=== PATIENT | female | born 1990 | race Caucasian/White ===

== ENCOUNTER 2020-07-09 17:46 | Emergency (ER) | payer OTHER, SELFPAY ==
[2020-07-09 19:12] VITALS: BP 125/78; PULSE 101; RESP 16; TEMP 37.1; O2SAT 97; BMI 36.2
--- NOTE | 2020-07-09 19:50 | XR_ITS ---
EXAMINATION: XR CHEST CLINICAL INFORMATION: Fever with cold like symptoms. COMPARISON: Chest x-ray 05/30/2018 TECHNIQUE: Frontal view of the chest was obtained. FINDINGS: Cardiac silhouette is normal in size. Lungs are adequately aerated. Subtle patchy opacity of the right lower lung. No gross lobar consolidation. No pleural effusion or pneumothorax. XR/XR chest 1V IMPRESSION: Subtle patchy opacity of the right lower lung is nonspecific but would be consistent with a viral infiltrate. Follow-up imaging recommended status post treatment to ensure resolution.
--- NOTE | 2020-07-09 20:11 | PC.NURSE ---
XRay at bedside, pt stated to XRay that her period was 3 days late. Pt provided with a urine cup, states she is unable to provide sample as she just voided. Provider aware.
[2020-07-09 20:13] LABS: Influenza A PCR NEGATIVE (Negative); Influenza B PCR NEGATIVE (Negative); Resp Syncy Virus RNA Qual PCR NEGATIVE (Negative)
[2020-07-09 20:17] LABS: SARS COV2 PCR INHOUSE POSITIVE (Negative)
--- NOTE | 2020-07-09 20:19 | ED.FEVER ---
HPI - Fever General Chief Complaint: Headache Stated Complaint: fever Time Seen by Provider: 07/09/20 19:50 Source: patient Mode of arrival: ambulatory Limitations: no limitations History of Present Illness HPI Narrative: 30-year-old female to the ED with complaints of subjective fevers, chills, body aches, fatigue and intermittent headaches for the past few days worse today. Reports positive exposure to COVID-19 by a close friend. Denies any other exposures. Denies recent travel. Denied any measured fevers, changes in vision, dizziness, lightheadedness, nausea/vomiting, neck pain or stiffness, chest pain or shortness of breath, productive cough, dry cough, wheezing, any symptoms or any other symptoms complaints or concerns at this time. Related Data Previous Rx's Medication Instructions Recorded acetaminophen [Tylenol Extra 1,000 mg PO QID PRN #14 tab 07/09/20 Strength] azithromycin See Rx Instructions .ROUTE 07/09/20 .COMPLEX #6 tab cyclobenzaprine 10 mg PO TID PRN #10 tab 07/09/20 ibuprofen 800 mg PO Q8H PRN #14 tab 07/09/20 Allergies Allergy/AdvReac Type Severity Reaction Status Date / Time No Known Allergies Allergy Unverified 03/07/20 17:36 Review of Systems Review of Systems: Constitutional : + Fever, + Chills, + fatigue, + Malaise ENT/Mouth : No sore throat, No runny nose Eyes: No Discharge Cardiovascular : No Chest Pain, No SOB Respiratory : No Cough, No Sputum, No Wheezing, No Smoke Exposure, No Dyspnea Gastrointestinal : No Nausea, No Vomiting, No Diarrhea Genitourinary : No irregular bleeding, No Dysuria, No Urinary Frequency, No Hematuria, No Urinary Incontinence, No Urgency, No Flank Pain, Musculoskeletal : + Myalgia Skin : No rash Neuro : + Headache Yes all other systems are reviewed and are negative [facility] Past Medical History Attestation statement: The following information was validated with the patient. Social History Social History Advance Directives: No Advance Directives Information Provided: Yes Physical Exam Vital Signs: Vital Signs: Last Vital Signs Temp 98.7 F 07/09/20 19:12 Pulse 101 H 07/09/20 19:12 Resp 16 01/19/21 19:12 BP 125/78 07/09/20 19:12 Pulse Ox 97 07/09/20 19:12 Body Mass Index 36.2 vital signs have been reviewed as normal and appeared to be correct. Blood pressure normal. Heart rate normal. Respiration rate normal. Temperature normal. Oxygen saturation normal. Appearance: Alert. Oriented X3. No acute distress. Head: Normal external exam. Normocephalic. Atraumatic. Eyes: PERRLA. EOMI. Conjunctiva and sclera normal. Eyelids normal. ENT: EAC normal. TM's Normal. Pharynx normal. Uvula midline. Moist mucous membranes. No trismus noted. No drooling noted. No muffled voice noted. Neck: Normal inspection. Neck supple. FROM. No adenopathy. No meningeal signs. CVS: Normal heart rate and rhythm. Heart sound normal. No murmurs noted. Pulses normal throughout. Respiratory: No respiratory distress. Painless inspiration. Breath sounds normal. No wheezes/rales/rhonchi noted. Chest nontender. No accessory muscle usage noted or decreased air movement noted. Back: Full range of motion noted. Skin: Skin warm and dry. Normal skin color. Normal skin turgor. No rashes/lesions/lacerations noted. Extremities: Extremities exhibit normal range of motion. Extremities nontender. Neuro: Oriented X 3. No motor deficit. No sensory deficit. Reflexes normal. Course Course Course Narrative: 30-year-old female presenting to the ED with URI like symptoms possibly COVID. - plan is to obtain a COVID/RSV/flu swab and a chest x-ray then re-evaluate. Reevaluation(s) Reevaluation #1: - when they went to take the patient's chest x-ray she reported that she is unsure if she is therefore requested a urine test. - therefore urine test ordered at this time. - patient is COVID positive. RSV/flu negative. - will DC home with antibiotics and symptomatic treatment along with instructions return if any new or worsening symptoms if is negative along with instructions to follow up with primary care provider. Patient understands agrees the plan. Time: 20:23 [facility] [place] - Fever Medical Records Attestation: I reviewed the patient's medical records. Lab Data Attestation: I reviewed the patient's lab results. Labs: Lab Results 07/09/20 07/09/20 Range/Units 19:26 20:59 Urine Color YELLOW Urine Appearance CLEAR Urine pH 5.5 (5.0-8.0) Ur Specific [place] >= 1.030 H (1.005-1.025) Urine Protein NEG (NEG-TRACE) MG/DL Urine Glucose (UA) 500 H (NEG) MG/DL Urine Ketones NEG (NEG) MG/DL Urine Blood NEG (NEG) Urine Nitrite NEG (NEG) Ur Leukocyte Esterase NEG (NEG) Coronavirus (PCR) POSITIVE A (Negative) Influenza Type A (PCR) NEGATIVE (Negative) Influenza Type B (PCR) NEGATIVE (Negative) RSV RNA Qual (PCR) NEGATIVE (Negative) Discharge Plan Discharge Clinical Impression: COVID-19 Patient Disposition: Home, Self-Care Instructions: COVID-19 (Coronavirus Disease 2019) (ED) Additional Instructions: You are positive for COVID-19. At this time you will be okay for discharge. Please plan for self quarantine for up to 14 days. Do not expose yourself to others. You may not go to work. If testing does come back negative you may return to activities as long as you are no longer having any symptoms for at least 3 days. Please continue to follow cold instructions and wash your hands frequently. You may take Tylenol as directed on the bottle for pain or fever. Patient seen in the emergency department on 07/09/2020 and should be excused from work until negative test results AND until 72 hours without any symptoms AND at least 10 days have passed since symptoms first appeared or since last exposure to COVID-19 positive patient CDC Guidelines for home isolation: - Stay away from others - WEAR A MASK if you are sick AND STAY HOME - Cover your mouth and nose with a tissue when you cough or sneeze. Dispose of tissues in a lined trash can and wash your hands immediately with soap and water for at least 20 seconds. If soap and water are not available, clean hands with alcohol-based hand cap and stud machine operator that contains at least 60% alcohol. - Clean your hands often with soap and water for at least 20 seconds - Avoid touching your eyes, nose and mouth with unwashed hands - Do not share dishes, drinking glasses, cups, eating utensils, towels, or bedding with other people in your home. After using these items, wash them thoroughly with soap and water or put in the insurance policy clerk. - Clean high-touch surfaces in your isolation area ( sick room and bathroom) every day; let a caregiver clean and disinfect high-touch surfaces in other areas of the home. Clean the area or item with soap and water or another detergent if it is dirty. Then, use a household disinfectant. - Limit contact with pets and animals: If you must care for a pet, wash your hands before and after interacting with them). Prescriptions: New acetaminophen [Tylenol Extra Strength] 500 mg tablet 1,000 mg PO QID PRN (Reason: fever or pain) Qty: 14 RF: 0 cyclobenzaprine 10 mg tablet 10 mg PO TID PRN (Reason: muscle spasm) Qty: 10 RF: 0 azithromycin 250 mg tablet See Rx Instructions .ROUTE .COMPLEX Qty: 6 RF: 0 ibuprofen 800 mg tablet 800 mg PO Q8H PRN (Reason: pain) Qty: 14 RF: 0 Referrals: Physician,Unknown [Primary Care Provider] - 2 days (your pcp) Stand Alone Forms: Work/School Release Print Language: Icelandic
--- NOTE | 2020-07-09 20:59 | PC.NURSE ---
UPreg obtained and sent. Awaiting results and XRay.
[2020-07-09 21:07] LABS: Glucose Urine UA 500 MG/DL (NEG); Leukocyte Esterase Urine NEG (NEG); Nitrite Urine NEG (NEG); PH 5.5 (5.0-8.0); Specific Gravity - Urine >= 1.030 (1.005-1.025); Urine Blood NEG (NEG); Urine Ketones NEG (NEG); Urine Protein NEG (NEG-TRACE)
[2020-07-09 21:08] LABS: Appearance Urine CLEAR; Color Urine YELLOW
--- NOTE | 2020-07-09 21:41 | PC.NURSE ---
Lab called due to pending UPreg. Per lab, so many add ons, we are getting confused. Lab to call back.
[2020-07-09 21:45] LABS: UPreg QC Valid YES; Urine Pregnancy NEGATIVE (NEGATIVE)
[2020-07-09 22:41] VITALS: BP 134/78; PULSE 78; RESP 16; TEMP 37.4; O2SAT 98
== END 2020-07-09 22:42 | disposition home or self-care (01) ==
PROVIDERS: Physician Assistant Medical; Emergency Provider Emergency Medicine Emergency Medical Services
DX: U07.1 COVID-19 (principal)
CPT/HCPCS: 0241U; 36415; 71045; 81003; 81025; 99283; 99284

== ENCOUNTER 2020-07-14 14:38 | Inpatient (IN) | payer OTHER, SELFPAY ==
[2020-07-14] VITALS (7 sets, daily range): BP systolic 111–141; BP diastolic 60–76; PULSE 82–112; RESP 15–28; TEMP 36.9–38.3; O2SAT 91–100; BMI 36.2
--- NOTE | 2020-07-14 14:54 | ECG_ITS ---
Test Reason : CHEST PAIN Blood Pressure : / mmHG Vent. Rate : 100 BPM Atrial Rate : 100 BPM P-R Int : 164 ms QRS Dur : 090 ms QT Int : 350 ms P-R-T Axes : 032 016 -13 degrees QTc Int : 451 ms Poor data quality Normal sinus rhythm Nonspecific T wave changes When compared with ECG of 21-MAY-2012 15:55, No significant changes seen Referred By: Donna Vences Electronically Signed By:Jeff Renee
--- NOTE | 2020-07-14 14:54 | XR_ITS ---
EXAMINATION: XR CHEST CLINICAL INFORMATION: sob + covid COMPARISON: Chest radiograph 07/09/2020 TECHNIQUE: Frontal view of the chest was obtained. FINDINGS: Normal cardiomediastinal silhouette. Patchy opacities in the bilateral lower lobes, increased since the prior study. No pleural effusion or pneumothorax. No acute osseous abnormality. XR/XR chest 1V IMPRESSION: Multifocal patchy infiltrate in the bilateral lower lobes, which can be seen in the setting of COVID 19 pneumonia.
[2020-07-14] MEDS: guaiFEN/Codeine SF 200/20/10ML 10 ML LIQUID PO (15:29)
[2020-07-14] MEDS: Acetaminophen 325 MG TABLET 975 MG PO (15:29)
--- NOTE | 2020-07-14 15:58 | ED_ITS ---
HPI - General Adult General Chief complaint: General Medical Stated complaint: SOB, COUGH, FEVER Time Seen by Provider: 07/14/20 14:52 Source: patient Mode of arrival: ambulatory Limitations: no limitations History of Present Illness HPI narrative: 30yoF who was recently dx c COVID-19 on 07/09/2020 presenting to the ED c worsening symptoms which include fevers, chills, body aches, intermittent headaches, nausea/vomiting, dry cough with shortness of breath, shortness of breath on exertion, generalized abdominal pain and diarrhea. Patient on arrival she was in the low 90s on room air. She was given normal saline and Zofran prior to arrival by EMS. Patient was placed on nasal cannula oxygen at 3L while here in the emergency department. She reports that she was prescribed and completed 4 days and was supposed to take her last dose today. Denies any other symptoms complaints or concerns at this time. Related Data Previous Rx's Medication Instructions Recorded acetaminophen [Tylenol Extra 1,000 mg PO QID PRN #14 tab 07/09/20 Strength] azithromycin See Rx Instructions .ROUTE 07/09/20 .COMPLEX #6 tab cyclobenzaprine 10 mg PO TID PRN #10 tab 07/09/20 ibuprofen 800 mg PO Q8H PRN #14 tab 07/09/20 Allergies Allergy/AdvReac Type Severity Reaction Status Date / Time No Known Allergies Allergy Unverified 03/07/20 17:36 Review of Systems Review of Systems: Constitutional : + Fever, + Chills, + fatigue, + Malaise ENT/Mouth : No sore throat, No runny nose Eyes: No Discharge Cardiovascular : No Chest Pain, + SOB Respiratory : + Cough, No Sputum, No Wheezing, No Dyspnea Gastrointestinal : + Nausea, + Vomiting, + abd pain, + Diarrhea Genitourinary : No irregular bleeding, No Dysuria, No Urinary Frequency, No Hematuria, No Urinary Incontinence, No Urgency, No Flank Pain, Musculoskeletal : + Myalgia Skin : No rash Neuro : + Headache Yes all other systems are reviewed and are negative [facility] Past Medical History Attestation statement: The following information was validated with the patient. Medical History No known health problems Social History Social History Alcohol intake: current Alcohol intake frequency: holidays/special occasions only Alcohol type: wine Smoking Status: Never smoker Use of substances other than those prescribed or required for medical reasons: No Advance Directives: No Advance Directives Information Provided: No Physical Exam Vital Signs: Vital Signs: Last Vital Signs Temp 100.9 F H 07/14/20 14:47 Pulse 103 H 07/14/20 16:53 Resp 20 07/14/20 16:53 BP 141/74 H 07/14/20 14:47 Pulse Ox 95 07/14/20 16:53 Body Mass Index 36.2 vital signs have been reviewed as normal and appeared to be correct. Blood pressure hypertensive. Heart rate tachycardic. Respiration rate tachypneic. Temperature febrile. Oxygen saturation hypoxic. Appearance: Alert. Oriented X3 . Moderate respiratory distress. Head: Normal external exam. Normocephalic. Atraumatic. Eyes: PERRLA. EOMI. Conjunctiva and sclera normal. Eyelids normal. ENT: EAC normal. TM's Normal. Pharynx normal. Uvula midline. Moist mucous membranes. No trismus noted. No drooling noted. No muffled voice noted. Neck: Normal inspection. Neck supple. FROM. No adenopathy. Thyroid Normal. Trachea midline. No meningeal signs. No neck mass noted. CVS: Normal heart rate and rhythm. Heart sound normal. No murmurs noted. Pulses normal throughout. Respiratory: Moderate respiratory distress with accessory muscle usage and requiring nasal cannula oxygen with decreased air movement. Otherwise no wheez es/rales/rhonchi noted. Chest is nontender. Patient is speaking in full sentences. Abdomen: Soft and nontender. Bowel sounds normal in all 4 quadrants. No distention noted. No organomegaly noted. No visible injury noted. Back: No CVA tenderness. Full range of motion noted. Skin: Skin warm and dry. Normal skin color. Normal skin turgor. No rashes/lesions/lacerations noted. Extremities: No lower extremity edema. Extremities exhibit normal range of motion. Extremities nontender. Neuro: Oriented X 3. No motor deficit. No sensory deficit. Reflexes normal. Course Course Course Narrative: 15pm - 30yoF who was recently dx c COVID-19 on 07/09/2020 presenting to the ED c worsening symptoms which include fevers, chills, body aches, intermittent headaches, nausea/vomiting, dry cough with shortness of breath, shortness of breath on exertion, generalized abdominal pain and diarrhea. - On exam patient is hypoxic, tachypneic and tachycardic placed on 3 L of nasal cannula oxygen in moderate respiratory distress with accessory muscle usage in decreased breath sounds. No wheezes/rales/rhonchi noted. Otherwise no other acute distress. Speaking in full sentences. - Plan: Labs, KEG, Blood cultures, lactic acid, CXR. Provide 10 mg of Decadron, 4 puffs of albuterol inhaler, 975 mg of Tylenol, 10 mg of Robitussin with codeine and 1 L of IV fluids and re-evaluate. Reevaluation(s) Reevaluation #1: - D-dimer 263. potassium 3.2. Ferritin 723. AST/ALT 43/73. LDH 342. Otherwise all other labs are within normal limits. Serum quant negative for . Patient positive for COVID since 07/09/20. Lactic acid 1.1. - CXR revealed multifocal patchy infiltrate in the bilateral lower lobes which could be seen in the setting of COVID-19 pneumonia. - therefore this is viral pneumonia/sepsis. - therefore due to elevated D-dimer patient will be having a CT scan of chest to evaluate for possible PE. Will replace the patient's potassium with 10 mEq of IV potassium. - plan is to admit patient for COVID with hypoxia. Sign-out at this time to SHANIQUA James pending CTA for PE. Time: 17:46 Medical Decision Making Medical Records Medical records reviewed: Yes I reviewed the patient's medical records. Lab Data Lab results reviewed: Yes I reviewed the patient's lab results. Result diagrams: 07/14/20 16:01 07/14/20 16:02 Labs: Lab Results 07/14/20 07/14/20 07/14/20 Range/Units 16:01 16:01 16:02 WBC 5.5 (4.8-10.8) X10*3/uL RBC 4.27 (4.20-5.50) X10*6/uL Hgb 12.4 (12.0-16.0) g/dl Hct 36.4 L (37-47) % MCV 85.2 (80-98) fL MCH 29.0 (27.0-33.0) pg MCHC 34.1 (31.0-35.0) g/dl RDW 12.5 (11.0-16.0) % Plt Count 161 (160-400) X10*3/uL MPV 10.8 (9.4-12.3) fL Immature Gran % (Auto) 0.4 (0.0-0.4) % Neut % (Auto) 85.5 H (45-73) % Lymph % (Auto) 10.1 L (20-40) % [place] % (Auto) 4.0 (2-11) % Eos % (Auto) 0.0 (0-4) % Baso % (Auto) 0.0 (0-2) % Lymph # (Auto) 0.6 L (1.2-4.9) X10*3/uL [place] # (Auto) 0.2 (0.1-1.2) X10*3/uL Eos # (Auto) 0.0 (0.0-0.4) X10*3/uL Baso # (Auto) 0.0 (0.0-0.2) X10*3/uL Abs Immat Gran (auto) 0.02 (0.00-0.03) X10*3/uL Absolute Neuts (auto) 4.7 (2.0-8.3) X10*3/uL Absolute Nucleated RBC 0.000 (0.0-0.012) X10*3/uL Nucleated RBC % (auto) 0.0 (0.0-0.2) /100WBC Smear Tech's Comments VERIFIED Hold Purple Top PT 14.9 H (10.8-13.0) SEC INR 1.3 H (0.9-1.1) D-Dimer 263 NG/ML Sodium 138 (135-145) mmol/L Potassium 3.2 L (3.3-5.1) mmol/l Chloride 102 (96-108) mmol/L Carbon Dioxide 26 (22-29) mmol/L Anion Gap 13 (12-20) BUN 7 L (9-16) mg/dL Creatinine 0.70 (0.5-1.4) mg/dL Estim Creat Clear Calc 138.0 Estimated GFR > 60 Random Glucose 198 H (60-115) mg/dL Lactic Acid (0.5-2.0) mmol/L Calcium 7.9 L (8.4-10.2) mg/dL Magnesium 1.8 (1.6-2.6) mg/dL Ferritin 723 H (10-122) ng/mL Total Bilirubin 0.4 (0.0-1.0) mg/dL Direct Bilirubin 0.2 (0.0-0.5) mg/dL AST 43 H (5-31) U/L ALT 71 H (0-31) U/L Alkaline Phosphatase 45 (39-117) U/L Lactate Dehydrogenase 342 H (122-220) U/L Total Protein 6.8 (6.5-8.0) g/dL Albumin 3.9 (3.5-5.0) g/dL Procalcitonin ng/mL Beta HCG, Quant mIU/mL 07/14/20 07/14/20 07/14/20 Range/Units 16:02 16:02 16:02 WBC (4.8-10.8) X10*3/uL RBC (4.20-5.50) X10*6/uL Hgb (12.0-16.0) g/dl Hct (37-47) % MCV (80-98) fL MCH (27.0-33.0) pg MCHC (31.0-35.0) g/dl RDW (11.0-16.0) % Plt Count (160-400) X10*3/uL MPV (9.4-12.3) fL Immature Gran % (Auto) (0.0-0.4) % Neut % (Auto) (45-73) % Lymph % (Auto) (20-40) % [place] % (Auto) (2-11) % Eos % (Auto) (0-4) % Baso % (Auto) (0-2) % Lymph # (Auto) (1.2-4.9) X10*3/uL [place] # (Auto) (0.1-1.2) X10*3/uL Eos # (Auto) (0.0-0.4) X10*3/uL Baso # (Auto) (0.0-0.2) X10*3/uL Abs Immat Gran (auto) (0.00-0.03) X10*3/uL Absolute Neuts (auto) (2.0-8.3) X10*3/uL Absolute Nucleated RBC (0.0-0.012) X10*3/uL Nucleated RBC % (auto) (0.0-0.2) /100WBC Smear Tech's Comments Hold Purple Top PT (10.8-13.0) SEC INR (0.9-1.1) D-Dimer NG/ML Sodium (135-145) mmol/L Potassium (3.3-5.1) mmol/l Chloride (96-108) mmol/L Carbon Dioxide (22-29) mmol/L Anion Gap (12-20) BUN (9-16) mg/dL Creatinine (0.5-1.4) mg/dL Estim Creat Clear Calc Estimated GFR Random Glucose (60-115) mg/dL Lactic Acid 1.1 (0.5-2.0) mmol/L Calcium (8.4-10.2) mg/dL Magnesium (1.6-2.6) mg/dL Ferritin (10-122) ng/mL Total Bilirubin (0.0-1.0) mg/dL Direct Bilirubin (0.0-0.5) mg/dL AST (5-31) U/L ALT (0-31) U/L Alkaline Phosphatase (39-117) U/L Lactate Dehydrogenase (122-220) U/L Total Protein (6.5-8.0) g/dL Albumin (3.5-5.0) g/dL Procalcitonin 0.10 ng/mL Beta HCG, Quant < 2 mIU/mL 07/14/20 Range/Units 16:03 WBC (4.8-10.8) X10*3/uL RBC (4.20-5.50) X10*6/uL Hgb (12.0-16.0) g/dl Hct (37-47) % MCV (80-98) fL MCH (27.0-33.0) pg MCHC (31.0-35.0) g/dl RDW (11.0-16.0) % Plt Count (160-400) X10*3/uL MPV (9.4-12.3) fL Immature Gran % (Auto) (0.0-0.4) % Neut % (Auto) (45-73) % Lymph % (Auto) (20-40) % [place] % (Auto) (2-11) % Eos % (Auto) (0-4) % Baso % (Auto) (0-2) % Lymph # (Auto) (1.2-4.9) X10*3/uL [place] # (Auto) (0.1-1.2) X10*3/uL Eos # (Auto) (0.0-0.4) X10*3/uL Baso # (Auto) (0.0-0.2) X10*3/uL Abs Immat Gran (auto) (0.00-0.03) X10*3/uL Absolute Neuts (auto) (2.0-8.3) X10*3/uL Absolute Nucleated RBC (0.0-0.012) X10*3/uL Nucleated RBC % (auto) (0.0-0.2) /100WBC Smear Tech's Comments Hold Purple Top SEE NOTE PT (10.8-13.0) SEC INR (0.9-1.1) D-Dimer NG/ML Sodium (135-145) mmol/L Potassium (3.3-5.1) mmol/l Chloride (96-108) mmol/L Carbon Dioxide (22-29) mmol/L Anion Gap (12-20) BUN (9-16) mg/dL Creatinine (0.5-1.4) mg/dL Estim Creat Clear Calc Estimated GFR Random Glucose (60-115) mg/dL Lactic Acid (0.5-2.0) mmol/L Calcium (8.4-10.2) mg/dL Magnesium (1.6-2.6) mg/dL Ferritin (10-122) ng/mL Total Bilirubin (0.0-1.0) mg/dL Direct Bilirubin (0.0-0.5) mg/dL AST (5-31) U/L ALT (0-31) U/L Alkaline Phosphatase (39-117) U/L Lactate Dehydrogenase (122-220) U/L Total Protein (6.5-8.0) g/dL Albumin (3.5-5.0) g/dL Procalcitonin ng/mL Beta HCG, Quant mIU/mL Imaging Data Chest x-ray: Attestation: I personally reviewed and interpreted this imaging study as follows: Radiologist's impression: FINDINGS: Normal cardiomediastinal silhouette. Patchy opacities in the bilateral lower lobes, increased since the prior study. No pleural effusion or pneumothorax. No acute osseous abnormality. XR/XR chest 1V IMPRESSION: Multifocal patchy infiltrate in the bilateral lower lobes, which can be seen in the setting of COVID 19 pneumonia. Critical Care Time Critical Care Time Critical Care Time: Yes Total Critical Care Time: 60 Attestation: I personally attest to this time spent taking care of the patient Discharge Plan Discharge Clinical Impression: Pneumonia due to COVID-19 virus, Hypoxia, Acute hypokalemia Febrile Qualifiers: Fever type: due to other condition Qualified Code(s): R50.81 - Fever presenting with conditions classified elsewhere Prescriptions: No Action acetaminophen [Tylenol Extra Strength] 500 mg tablet 1,000 mg PO QID PRN (Reason: fever or pain) Qty: 14 RF: 0 cyclobenzaprine 10 mg tablet 10 mg PO TID PRN (Reason: muscle spasm) Qty: 10 RF: 0 azithromycin 250 mg tablet See Rx Instructions .ROUTE .COMPLEX Qty: 6 RF: 0 ibuprofen 800 mg tablet 800 mg PO Q8H PRN (Reason: pain) Qty: 14 RF: 0
[2020-07-14 16:17] LABS: Hematocrit 36.4 % (37-47); Hemoglobin 12.4 g/dl (12.0-16.0); Imm Gran Abs Auto 0.02 X10*3/uL (0.00-0.03); Imm Gran Pct Auto 0.4 % (0.0-0.4); Lymphocytes Absolute Auto 0.6 X10*3/uL (1.2-4.9); Lymphocytes Percent Auto 10.1 % (20-40); MANUAL DIFF FLAG SCAN; Mean Corpuscular HGB Conc 34.1 g/dl (31.0-35.0); Mean Corpuscular Volume 85.2 fL (80-98); Mean Platelet Volume 10.8 fL (9.4-12.3); Monocytes Absolute Auto 0.2 X10*3/uL (0.1-1.2); Neutrophils Absolute Auto 4.7 X10*3/uL (2.0-8.3); Neutrophils Percent Auto 85.5 % (45-73); Platelet Count 161 X10*3/uL (160-400); Red Blood Count 4.27 X10*6/uL (4.20-5.50); Red Cell Distribution Width 12.5 % (11.0-16.0); SCAN SMEAR FLAG 1; White Blood Count 5.5 X10*3/uL (4.8-10.8)
[2020-07-14] MEDS: Albuterol Sulfate 90 MCG 8 GM INHALER 4 PUFF INHALE (16:32)
[2020-07-14 16:38] LABS: INTERNATIONAL NORM RATIO 1.3 (0.9-1.1); Prothrombin Time 14.9 SEC (10.8-13.0)
[2020-07-14 16:40] LABS: SLIDE REVIEW VERIFIED
[2020-07-14 16:41] LABS: D Dimer 263 NG/ML
[2020-07-14 16:46] LABS: Lactic Acid 1.1 mmol/L (0.5-2.0)
[2020-07-14] MEDS: 0.9 % Sodium Chloride 1,000 ML 999 ML IVCONT (16:49)
[2020-07-14 16:50] LABS: Alanine Aminotransferase 71 U/L (0-31); Albumin Level 3.9 g/dL (3.5-5.0); Alkaline Phosphatase 45 U/L (39-117); Anion Gap 13 (12-20); Aspartate Amino Transferase 43 U/L (5-31); Bilirubin Direct 0.2 mg/dL (0.0-0.5); Bilirubin Total 0.4 mg/dL (0.0-1.0); Blood Urea Nitrogen 7 mg/dL (9-16); Calcium 7.9 mg/dL (8.4-10.2); Carbon Dioxide 26 mmol/L (22-29); Chloride 102 mmol/L (96-108); Estimated Glomerular Filt Rate > 60; Glucose Random 198 mg/dL (60-115); Lactate Dehydrogenase 342 U/L (122-220); Magnesium 1.8 mg/dL (1.6-2.6); Potassium 3.2 mmol/l (3.3-5.1); Sodium 138 mmol/L (135-145); Total Protein 6.8 g/dL (6.5-8.0)
--- NOTE | 2020-07-14 16:52 | CT_ITS ---
EXAMINATION: CT ANGIOGRAM OF THE CHEST WITH AND WITHOUT CONTRAST (CT PULMONARY ANGIOGRAM FOR PE) CLINICAL INFORMATION: Reason for Exam covid + c worsening sob elevated d-dimer COMPARISON: None TECHNIQUE: Prior to contrast administration, noncontrast localization images were obtained. Subsequently, multidetector volumetric imaging was performed from the thoracic inlet to below the diaphragms following the administration of 80 mL Omnipaque 350 intravenous contrast. No contrast reaction reported Sagittal, coronal, and MIP oblique sagittal reformatted images were obtained on the CT workstation, uploaded to PACS, and reviewed. This CT examination was performed using dose optimization techniques as appropriate, variously including the following: *Automated exposure control *Adjustment of mA and/or kV according to patient size (this includes techniques or standardized protocols for targeted exams where dose is matched to indication/reason for exam; i.e. extremities or head) *Use of iterative reconstruction technique Total exam dose-length product 468 mGy-cm FINDINGS: QUALITY OF STUDY/CONTRAST BOLUS: Satisfactory. PULMONARY ARTERIES: No central or segmental pulmonary emboli. THORACIC AORTA: No aneurysm or dissection. LUNG: There is scattered patchy opacities seen in both lungs most prominent in both lower lobes suggestive of multilobar infiltrates. PLEURA: There is minimal left pleural effusion. No pleural thickening or calcification seen to MEDIASTINUM: The heart size is normal. No abnormal mediastinal lymph nodes or mass seen. No pericardial effusion seen. No evidence of septal bowing or right heart strain. The thyroid lobes are symmetrical and normal. CHEST WALL/AXILLA: Small shotty lymph nodes are seen in the axilla. OSSEOUS STRUCTURES: No acute or suspicious osseous abnormality. UPPER ABDOMEN: Unremarkable. No reflux of contrast into the hepatic veins to suggest elevated right heart pressures. CT/CT angio chest PE protocol IMPRESSION: No evidence of PE. No evidence of aortic dissection or aneurysm. There is multilobar bilateral infiltrates. Small left pleural effusion. VTE: negative
[2020-07-14 16:56] LABS: HCG Quantitative < 2 mIU/mL
--- NOTE | 2020-07-14 16:59 | PC.NURSE ---
new iv placed in r ac d/t need for cta.
[2020-07-14 17:11] LABS: Ferritin 723 ng/mL (10-122)
[2020-07-14] MEDS: cefTRIAXone sodium 2 GM in 0.9 % Sodium Chloride 50 ML IV (18:11)
[2020-07-14] MEDS: Potassium Chloride/H20 10 MEQ/100 ML PIGGYBACK 100 MEQ IV (18:11)
--- NOTE | 2020-07-14 19:10 | PC.NURSE ---
RETURNED TO ROOM FROM CTA.
[2020-07-14] MEDS: iohexoL 350 MG/ML 100 ML INFUS..BTL IV (19:14)
--- NOTE | 2020-07-14 19:52 | PC.NURSE ---
AMBULATED TO BATHROOM. UPON RETURN O2 SAT 74% ON ROOM AIR. PLACED BACK ON 3L NC UP TO 86%. INCREASED TO 5L NC IMPROVED TO 87% FEELING WEAK AND TACHYPNIC. PLACED ON NON-REBREATHER WITH GOOD EFFECT. NOW 94%. WILL TITRATE ONCE SAT REMAINS STABLE.
[2020-07-14 20:33] LABS: C Reactive Protein 16.58 mg/dL (< or = 0.50)
--- NOTE | 2020-07-14 20:37 | PC.NURSE ---
SEEN BY THE HOSPITALIST. NOW ON 9L AT 93%
--- NOTE | 2020-07-14 21:07 | P.HPHOSP_ITS ---
History of Present Illness Date of Service: 07/14/20 Chief Complaint: sob A 30-year-old female with no past medical history presents to the hospital with complaints of shortness of breath and cough. Patient was diagnosed with COVID- 19 on of this month and reports that at that time she had a fever, chills, headache and that is why she got tested, 2 days ago she started developing shortness of breath, coughing, nausea vomiting, diarrhea, and weakness. Patient also reports loss of appetite. Her shortness of breath got so severe today that she had to call EMS. She otherwise denies any change in vision, no chest pain, no palpitations, no urinary symptoms and no lower extremity edema. On arrival patient has a temp of 100.9, heart rate of 112, respiratory rate of 22, blood pressure 141/74, noted to be satting 76% on ambulation to the bathroom. I tried to bring down her oxygen which she was on 15 L of non- rebreather attempt in that caused her oxygen level to drop to 92% on 9L Labs are significant for WBC count of 5.5, PT of 14.9, INR 1.3, sodium of 138, potassium 3.2, BUN of 7, creatinine of 0.7, ferritin 720, AST 43, ALT 71, LDH of 342, S start P of 16.[address] angiogram negative for PE, showed bilateral infiltrates Past medical history: Denies Surgical history: Denies Family history: Significant for diabetes, kidney disease, heart disease Social history: Comes from home, denies tobacco alcohol or illicit drugs Review of Systems Review of Systems: Yes all other systems are reviewed and are negative [facility] Medical History No known health problems Social History Alcohol intake: current Alcohol intake frequency: holidays/special occasions only Alcohol type: wine Smoking Status: Never smoker Use of substances other than those prescribed or required for medical reasons: No Advance Directives: No Advance Directives Information Provided: No Meds Allergies Allergy/AdvReac Type Severity Reaction Status Date / Time No Known Allergies Allergy Unverified 03/07/20 17:36 Physical Exam Vital Signs and Narrative: Vital Signs: Last Vital Signs Temp 98.4 F 07/14/20 19:58 Pulse 99 07/14/20 19:58 Resp 26 H 07/14/20 19:58 BP 134/60 07/14/20 19:58 Pulse Ox 100 07/14/20 19:58 Body Mass Index 36.2 Const: General: cooperative and no acute distress Orienta tion/consciousness: patient oriented x3 Eyes: General: appearance normal, both eyes and all related structures Resp: Effort & Inspection: normal respiratory effort and able to speak in complete sentences Cardio: Rate: regular rate Rhythm: regular rhythm GI: Palpation (GI): Soft to palpation Auscultation: normal bowel sounds Neuro: General: patient oriented x3 Cognition (Neuro): normal cognition Extrem: General: Yes normal to inspection and Yes no pedal edema Results Labs CBC and Chem 7: 07/14/20 16:01 07/14/20 16:02 Labs: Laboratory Results - last 24 hr 07/14/20 07/14/20 07/14/20 16:01 16:01 16:02 MCV 85.2 MCH 29.0 MCHC 34.1 RDW 12.5 Plt Count 161 MPV 10.8 Immature Gran % (Auto) 0.4 Neut % (Auto) 85.5 H Lymph % (Auto) 10.1 L [place] % (Auto) 4.0 Eos % (Auto) 0.0 Baso % (Auto) 0.0 Lymph # (Auto) 0.6 L [place] # (Auto) 0.2 Eos # (Auto) 0.0 Baso # (Auto) 0.0 Abs Immat Gran (auto) 0.02 Absolute Neuts (auto) 4.7 Absolute Nucleated RBC 0.000 Nucleated RBC % (auto) 0.0 Smear Tech's Comments VERIFIED Hold Purple Top PT 14.9 H INR 1.3 H D-Dimer 263 Anion Gap 13 Estim Creat Clear Calc 138.0 Estimated GFR > 60 Random Glucose 198 H Lactic Acid Calcium 7.9 L Magnesium 1.8 Ferritin 723 H Total Bilirubin 0.4 Direct Bilirubin 0.2 AST 43 H ALT 71 H Alkaline Phosphatase 45 Lactate Dehydrogenase 342 H C-Reactive Protein 16.58 H Total Protein 6.8 Albumin 3.9 Procalcitonin Beta HCG, Quant 07/14/20 07/14/20 07/14/20 16:02 16:02 16:02 MCV MCH MCHC RDW Plt Count MPV Immature Gran % (Auto) Neut % (Auto) Lymph % (Auto) [place] % (Auto) Eos % (Auto) Baso % (Auto) Lymph # (Auto) [place] # (Auto) Eos # (Auto) Baso # (Auto) Abs Immat Gran (auto) Absolute Neuts (auto) Absolute Nucleated RBC Nucleated RBC % (auto) Smear Tech's Comments Hold Purple Top PT INR D-Dimer Anion Gap Estim Creat Clear Calc Estimated GFR Random Glucose Lactic Acid 1.1 Calcium Magnesium Ferritin Total Bilirubin Direct Bilirubin AST ALT Alkaline Phosphatase Lactate Dehydrogenase C-Reactive Protein Total Protein Albumin Procalcitonin 0.10 Beta HCG, Quant < 2 07/14/20 16:03 MCV MCH MCHC RDW Plt Count MPV Immature Gran % (Auto) Neut % (Auto) Lymph % (Auto) [place] % (Auto) Eos % (Auto) Baso % (Auto) Lymph # (Auto) [place] # (Auto) Eos # (Auto) Baso # (Auto) Abs Immat Gran (auto) Absolute Neuts (auto) Absolute Nucleated RBC Nucleated RBC % (auto) Smear Tech's Comments Hold Purple Top SEE NOTE PT INR D-Dimer Anion Gap Estim Creat Clear Calc Estimated GFR Random Glucose Lactic Acid Calcium Magnesium Ferritin Total Bilirubin Direct Bilirubin AST ALT Alkaline Phosphatase Lactate Dehydrogenase C-Reactive Protein Total Protein Albumin Procalcitonin Beta HCG, Quant Imaging Radiologist's Impressions: Impressions Chest X-Ray 07/14/20 14:54 IMPRESSION: Multifocal patchy infiltrate in the bilateral lower lobes, which can be seen in the setting of COVID 19 pneumonia. Chest CTA 07/14/20 16:52 IMPRESSION: No evidence of PE. No evidence of aortic dissection or aneurysm. There is multilobar bilateral infiltrates. Small left pleural effusion. VTE: negative Assessment and Plan (1) Acute respiratory failure with hypoxia: Status: Acute (2) Pneumonia due to COVID-19 virus: Status: Acute (3) Sepsis: Status: Acute This is a 30-year-old female with no significant past medical history who presents to the hospital with complaints of shortness of breath and coughing. Patient was diagnosed with COVID-19 on of this month now is hypoxic # acute hypoxic respiratory failure - secondary to COVID pneumonia, negative for PE, bacteria pneumonia less likely as procalcitonin low - will start patient on dexamethasone - oxygen supplement - id consult for any other treatment # sepsis - secondary to viral pneumonia - tachycardic, febrile, tachypneic - normal lactic acid Plan: - treatment as above # pneumonia due to COVID-19 -dexamethasone daily - O2 supplement - monitor respiratory status DVT prophylaxis: Lovenox
[2020-07-14] MEDS: Enoxaparin Sodium 40 MG/0.4 ML SYRINGE SUBCUT (22:15)
--- NOTE | 2020-07-14 22:18 | PC.NURSE ---
TACHPINIC AT REST. SKIN PWD. NRB IN PLACE BUT ON 9L. AWAITING VENTI MASK TO HELP TAPER. PT HAD MASK OFF BREIFLY FOR ORAL TEMP AND DROPPED TO 88%
--- NOTE | 2020-07-14 22:38 | PC.NURSE ---
PLACED ON COMFORT CANNULA AT 10L BY RESPIRATORY. DESAT TO 87% WHILE CHANGING OVER. NOW 92%.
[2020-07-14 23:56] LABS: Glucose Urine UA 500 MG/DL (NEG); Leukocyte Esterase Urine NEG (NEG); Nitrite Urine NEG (NEG); PH 6.5 (5.0-8.0); Specific Gravity - Urine <= 1.005 (1.005-1.025); Urine Blood 3+ (NEG); Urine Ketones 15 MG/DL (NEG); Urine Protein NEG (NEG-TRACE)
[2020-07-14 23:58] LABS: Appearance Urine HAZY; Color Urine YELLOW
[2020-07-15] VITALS (9 sets, daily range): BP systolic 102–155; BP diastolic 58–79; PULSE 84–109; RESP 18–30; TEMP 36.6–37.1; O2SAT 92–96
[2020-07-15 00:16] LABS: Bacteria Urine 2+ /LPF; Mucus Urine 2+ /LPF; Squamous Epithelial Cell Urine 2+ /LPF
[2020-07-15] MEDS: Acetaminophen 325 MG TABLET 650 MG PO ×2 (02:36→17:27)
--- NOTE | 2020-07-15 02:40 | PC.NURSE ---
PATIENT WAS 88% ON 11L. TACHYPNIC 36-40. ATTEMPTED TO REPOSITION SELF TO RIGHT SIDE WITH THIS NURSE. SAT DOWN TO 82%. REQUESTED HOB ELEVATED AGAIN. O2 SAT NOW 90% ON 13L RESP 28
[2020-07-15] MEDS: 0.9 % Sodium Chloride Flush 3 ML SYRINGE IVFLUSH ×3 (02:45→15:35)
--- NOTE | 2020-07-15 02:46 | PC.NURSE ---
MESSAGE SENT TO DR TOLLIVER REGARDING PATIENT REQUEST FOR COUGH SYRUP.
--- NOTE | 2020-07-15 04:48 | PC.NURSE ---
PATIENT CALLED REPORTING FEELING LIKE SUGAR WAS LOW. POC 200.
[2020-07-15 06:21] LABS: MANUAL DIFF FLAG NO
[2020-07-15 06:23] LABS: Basophils Percent Auto 0.1 % (0-2); Hematocrit 38.8 % (37-47); Hemoglobin 12.7 g/dl (12.0-16.0); Imm Gran Abs Auto 0.06 X10*3/uL (0.00-0.03); Imm Gran Pct Auto 0.7 % (0.0-0.4); Lymphocytes Absolute Auto 0.8 X10*3/uL (1.2-4.9); Lymphocytes Percent Auto 8.3 % (20-40); Mean Corpuscular HGB Conc 32.7 g/dl (31.0-35.0); Mean Corpuscular Hemoglobin 28.5 pg (27.0-33.0); Mean Corpuscular Volume 87.2 fL (80-98); Mean Platelet Volume 10.8 fL (9.4-12.3); Monocytes Absolute Auto 0.3 X10*3/uL (0.1-1.2); Monocytes Percent Auto 3.7 % (2-11); Neutrophils Percent Auto 87.2 % (45-73); Platelet Count 186 X10*3/uL (160-400); Red Blood Count 4.45 X10*6/uL (4.20-5.50); Red Cell Distribution Width 12.5 % (11.0-16.0); White Blood Count 9.2 X10*3/uL (4.8-10.8)
[2020-07-15 06:53] LABS: Anion Gap 18 (12-20); Blood Urea Nitrogen 8 mg/dL (9-16); Calcium 7.8 mg/dL (8.4-10.2); Carbon Dioxide 24 mmol/L (22-29); Chloride 102 mmol/L (96-108); Creatinine Clr Calc Pharmacy 130.6; Estimated Glomerular Filt Rate > 60; Glucose Random 215 mg/dL (60-115); Potassium 3.7 mmol/l (3.3-5.1); Sodium 140 mmol/L (135-145)
[2020-07-15 07:05] LABS: Glucose, Whole Blood 200 mg/dL (60-115)
[2020-07-15] MEDS: dexAMETHasone sod phosphate 4 MG/ML VIAL 6 MG IVPUSH ×2 (07:57→14:25)
--- NOTE | 2020-07-15 11:38 | PC.NURSE ---
sing has been to bedside to reevaluate pt. no change in pt assesment.
--- NOTE | 2020-07-15 12:41 | PC.NURSE ---
pt states her breathing feels easier pt speaking in full clear sentences, no accessory muscle use noted. awaiting bed assignment.
--- NOTE | 2020-07-15 15:16 | PC.NURSE ---
SAO2 93% ON 15L HUMIDIFIED NASAL CANNULA. TACHIPNI AT REST. SKIN PWD. ST ON MONITOR. VERY SOB WITH TRANSFER TO [facility]. PT DROPS TO 85% ON 15l NC AND WORK OF BREATHING INCREASES. AFTER 10 MINUTES ON COMMODE PT REMAINS AT 88% AT BEST STILL ON NC. PT WILL ATTEMPT SIDE LYING OR PRONE ONCE BACK IN BED.
--- NOTE | 2020-07-15 16:12 | P.CNID_ITS ---
History of Present Illness Data of Consult Service Date: 07/15/20 Requesting physician: Kaia Kevin Primary Care Provider: None Physician HPI Reason for consult: shortness of breath She reports cough and shortness of breath for about a week She had no nausea or vomiting Her friend has COVID Her oxygen needs are high flow,15 l Review of Systems Cardiovascular: Cardiovascular: Reports dyspnea Respiratory: Respiratory: Reports dyspnea [facility] Past Medical History Medical History No known health problems Social History Social History Household Members: Family Housing: House Alcohol intake: current Alcohol intake frequency: holidays/special occasions only Alcohol type: wine Smoking Status: Never smoker service: No Current occupational status: unemployed Meds Allergies Allergy/AdvReac Type Severity Reaction Status Date / Time No Known Allergies Allergy Unverified 03/07/20 17:36 Physical Exam Vital Signs: Vital Signs: Last Vital Signs Temp 98.8 F 07/15/20 15:15 Pulse 106 H 07/15/20 15:15 Resp 30 H 07/15/20 15:15 BP 113/64 07/15/20 15:15 Pulse Ox 92 07/15/20 15:15 Body Mass Index 36.2 Const: General: cooperative Orientation/consciousness: patient oriented x3 HENMT: Head: Yes normal to inspection Mouth: Normal oral and palatal mucosa present Eyes: General: appearance normal, both eyes and all related structures Resp: Effort & Inspection: normal respiratory effort Cardio: Rate: regular rate Rhythm: regular rhythm GI: Palpation (GI): Soft to palpation and nontender : General: Yes no CVA tenderness Back/Spine/Pelvis: Back: no CVA tenderness Skin: General skin exam: no rashes or lesions noted Neuro: General: patient oriented x3 Extrem: General: Yes normal to inspection Assessment and Plan (1) Acute respiratory failure with hypoxia: Status: Acute Remdesivir Dexamethsone Oxygen support (2) Sepsis: Status: Acute Results Labs CBC & Chem 7: 07/16/20 05:39 07/21/20 05:54 Labs: Short CBC 07/14/20 07/15/20 Range/Units 16:01 06:15 WBC 5.5 9.2 (4.8-10.8) X10*3/uL Hgb 12.4 12.7 (12.0-16.0) g/dl Hct 36.4 L 38.8 (37-47) % Plt Count 161 186 (160-400) X10*3/uL BMP 07/14/20 07/15/20 16:02 06:15 Sodium 138 140 Potassium 3.2 L 3.7 Chloride 102 102 Carbon Dioxide 26 24 BUN 7 L 8 L Creatinine 0.70 0.74 Calcium 7.9 L 7.8 L Liver Function 07/14/20 Range/Units 16:02 Total Bilirubin 0.4 (0.0-1.0) mg/dL Direct Bilirubin 0.2 (0.0-0.5) mg/dL AST 43 H (5-31) U/L ALT 71 H (0-31) U/L Alkaline Phosphatase 45 (39-117) U/L Albumin 3.9 (3.5-5.0) g/dL Urine 07/14/20 Range/Units 20:02 Urine Color YELLOW Urine Appearance HAZY Urine pH 6.5 (5.0-8.0) Ur Specific Richards <= 1.005 (1.005-1.025) Urine Protein NEG (NEG-TRACE) MG/DL Urine Glucose (UA) 500 H (NEG) MG/DL
--- NOTE | 2020-07-15 16:20 | PC.NURSE ---
96% ON 12LITERS NC WITH MINIMAL WORK OF BREATHING.
--- NOTE | 2020-07-15 16:44 | PM.CNPUL ---
History of Present Illness History of Present Illness Consult date: 07/15/20 Requesting physician: Kaia Kevin Reason for consult: hypoxemia Chief complaint: Hypoxic resp failure, Covid PNA Narrative: 30-year-old lady with underlying no significant past medical history admitted on 07/14/2020 with shortness of breath and underlying acute hypoxic respiratory failure secondary to COVID-19 requiring supplemental oxygen at 12-15L. She has been started on dexamethasone and is waiting to receive convalescent plasma and remdesivir. Her oxygenation is improving with proning. Review of Systems Constitutional: Constitutional: Denies daytime sleepiness, Denies excessive sweating, Denies fatigue, Denies fever(s), Denies lethargy, Denies malaise, Denies night sweats, Denies snoring and Denies weight loss Eyes: Eyes: Denies blurry vision and Denies itchy eyes ENT: Denies nasal congestion, Denies post nasal drip, Denies sinus pain, Denies sinus pressure and Denies other ( Thrush) Cardiovascular: Cardiovascular: Denies chest pain, Denies pedal edema, Reports dyspnea, Denies orthopnea and Denies paroxysmal nocturnal dyspnea Respiratory: Respiratory: Denies cough, Denies hemoptysis, Denies excessive phlegm production, Reports dyspnea, Denies snoring and Denies wheezing Gastrointestinal: Gastrointestinal: Denies abdominal pain and Denies heartburn Musculoskeletal: Musculoskeletal: Denies myalgias, Denies arthralgias and Denies joint swelling Integumentary/Breasts: Skin/Breast: Denies rash Neurologic: Denies memory loss and Denies seizure-like activity Psychiatric: Psychiatric: Denies abnormal sleep pattern, Denies anxiety and Denies memory loss Endocrine: Endocrine: Denies excessive sweating, Denies fatigue and Denies heat intolerance Hematologic/Lymphatic: Hematologic/Lymphatic: Denies easy bruising Allergic/Immunologic: Allergic/Immunologic: Denies itchy eyes, Denies seasonal rhinorrhea and Denies wheezing PMFSH Past Medical History Medical History No known health problems Social History Social History Alcohol intake: current Alcohol intake frequency: holidays/special occasions only Alcohol type: wine Smoking Status: Never smoker Use of substances other than those prescribed or required for medical reasons: No Advance Directives: No Advance Directives Information Provided: No Meds Allergies Allergy/AdvReac Type Severity Reaction Status Date / Time No Known Allergies Allergy Unverified 03/07/20 17:36 Physical Exam Vital Signs: Vital Signs: Last Vital Signs Temp 98.8 F 07/15/20 15:15 Pulse 106 H 07/15/20 15:15 Resp 30 H 07/15/20 15:15 BP 113/64 07/15/20 15:15 Pulse Ox 96 07/15/20 16:20 Body Mass Index 36.2 Const: General: no acute distress, alert and awake Eyes: Sclerae: sclerae normal EOM: EOMs intact bilaterally Neck: Neck: Yes no lymphadenopathy, Yes trachea midline and Yes supple Resp: Effort & Inspection: normal respiratory effort and no respiratory distress Auscultation: crackles (Diffuse bilateral) Cardio: Rate: regular rate Rhythm: regular rhythm Heart sounds: no gallops, no murmurs and no rubs GI: Palpation (GI): Soft to palpation and Other GI palpation findings present ( Nontender) Auscultation: normal bowel sounds Extrem: General: Yes no pedal edema, No clubbing and No cyanosis Results Laboratory Findings CBC and BMP: 07/15/20 06:15 07/15/20 06:15 ABG, PT/INR, D-dimer: PT/INR, D-dimer PT 14.9 SEC (10.8-13.0) H 07/14/20 16:01 INR 1.3 (0.9-1.1) H 07/14/20 16:01 D-Dimer 263 NG/ML 07/14/20 16:01 Abnormal lab findings: Abnormal Labs 07/14/20 07/14/20 07/14/20 16:01 16:01 16:02 Hct 36.4 L Immature Gran % (Auto) Neut % (Auto) 85.5 H Lymph % (Auto) 10.1 L Lymph # (Auto) 0.6 L Abs Immat Gran (auto) PT 14.9 H INR 1.3 H Potassium 3.2 L BUN 7 L POC Glucose Random Glucose 198 H Calcium 7.9 L Ferritin 723 H AST 43 H ALT 71 H Lactate Dehydrogenase 342 H C-Reactive Protein 16.58 H Urine Glucose (UA) Urine Blood 07/14/20 07/15/20 07/15/20 20:02 04:46 06:15 Hct Immature Gran % (Auto) 0.7 H Neut % (Auto) 87.2 H Lymph % (Auto) 8.3 L Lymph # (Auto) 0.8 L Abs Immat Gran (auto) 0.06 H PT INR Potassium BUN POC Glucose 200 H Random Glucose Calcium Ferritin AST ALT Lactate Dehydrogenase C-Reactive Protein Urine Glucose (UA) 500 H Urine Blood 3+ H 07/15/20 06:15 Hct Immature Gran % (Auto) Neut % (Auto) Lymph % (Auto) Lymph # (Auto) Abs Immat Gran (auto) PT INR Potassium BUN 8 L POC Glucose Random Glucose 215 H Calcium 7.8 L Ferritin AST ALT Lactate Dehydrogenase C-Reactive Protein Urine Glucose (UA) Urine Blood Diagnostic Findings CT scan - chest: report reviewed and image reviewed Assessment and Plan (1) COVID-19: Status: Acute (2) Acute respiratory failure with hypoxia: Status: Acute Impression: 30-year-old lady admitted with acute hypoxic respiratory failure secondary to COVID-19 with significant supplemental oxygen requirements. Now on 12 L. has been started on dexamethasone. Remdesivir and convalescent plasma are pending. CTA chest with no evidence of pulmonary embolism. Recommendation: Agree with current treatment regimen including systemic glucocorticoids, remdesivir, and convalescent plasma. Continue to titrate off supplemental oxygen as tolerated. Continue to alternate between prone and supine position every 8 hours.
--- NOTE | 2020-07-15 17:11 | HO.PM.IMPN ---
Subjective Subjective Date of Service: 07/17/20 Interval History: Acute hypoxemic respiratory failure secondary to COVID. Review of Systems Patient seems short of breath, has cough, denies chest pain or abdominal pain or nausea or vomiting Last fever was yesterday 100.9*F Physical Exam Vital Signs: Vital Signs: Last Vital Signs Temp 98.8 F 07/15/20 15:15 Pulse 106 H 07/15/20 15:15 Resp 30 H 07/15/20 15:15 BP 113/64 07/15/20 15:15 Pulse Ox 96 07/15/20 16:20 Body Mass Index 36.2 Physical exam: Constitutional: Not in acute distress, but somewhat short of breath Cvs: rrr, [id number] , no murmur res: Diminished at bases, no rales or wheezing abd: no rebound or guarding ,nt, bs present. ext pulses present , no cyanosis neuro: axo3 , nonfocal. Objective Data Current Medications Generic Name Dose Route Start Last Admin Trade Name Freq PRN Reason Stop Dose Admin Acetaminophen 650 mg 07/14/20 20:49 07/15/20 02:36 Acetaminophen 325 Mg Tablet PO 650 mg Q6H PRN Administration Pain, Mild (Pain Scale 1-3) Dexamethasone Sodium Phosphate 6 mg 07/15/20 09:00 07/15/20 14:25 Dexamethasone Sod Phosphate 4 Mg/Ml Vial IVPUSH 6 mg DAILY MALCOLM Administration Docusate Sodium 100 mg 07/14/20 20:49 Docusate Sodium 100 Mg Capsule PO DAILY PRN Constipation Enoxaparin Sodium 40 mg 07/14/20 21:00 07/14/20 22:15 Enoxaparin Sodium 40 Mg/0.4 Ml Syringe SUBCUT 40 mg Q24H MALCOLM Administration Guaifenesin/Dextromethorphan 5 ml 07/15/20 03:16 Guaifenesin Dm 100/10/5 Ml 5 Ml Syrup PO Q4H PRN Cough Ondansetron HCl 4 mg 07/14/20 20:49 Ondansetron Hcl 4 Mg/2 Ml Vial IVPUSH Q8H PRN Nausea and Vomiting Pharmacy Consult 1 each 07/14/20 16:16 Consult Rx Perform Med Rec MISCELLANE ONCE PRN Consult order Sodium Chloride 3 ml 07/15/20 00:00 07/15/20 15:35 0.9 % Sodium Chloride Flush 3 Ml Syringe IVFLUSH 3 ml QSHIFT MALCOLM Administration Labs CBC & Chem 7: 07/16/20 05:39 07/17/20 08:17 Assessment and Plan (1) COVID-19: Status: Acute (2) Acute respiratory failure with hypoxia: Status: Acute (3) Pneumonia due to COVID-19 virus: Status: Acute Assessment and Plan: 30-year-old female with no significant past medical history who presents to the hospital with complaints of shortness of breath and coughing. Patient was diagnosed with COVID-19 on of this month now is hypoxic 1. acute hypoxic respiratory failure- secondary to COVID pneumonia, negative for PE, bacteria pneumonia less likely as procalcitonin low continue dexamethasone,oxygen supplement id eval pending for remdesvir pulm -recomended to add plasma also. 2.sepsis- secondary to viral pneumonia tachycardic, febrile, tachypneic normal lactic acid treatment as above. 3. pneumonia due to COVID-19 continue dexamethasone daily, O2 supplement
--- NOTE | 2020-07-15 17:30 | PC.NURSE ---
MEDICATED FOR HEADACHE. REMAINS PRONE NOW AT 95% ON 10L.
[2020-07-15 20:07] LABS: Alanine Aminotransferase 63 U/L (0-31); Alkaline Phosphatase 44 U/L (39-117); Aspartate Amino Transferase 34 U/L (5-31); Bilirubin Direct 0.2 mg/dL (0.0-0.5); Bilirubin Total 0.4 mg/dL (0.0-1.0)
[2020-07-15] MEDS: Remdesivir 200 MG in 0.9 % Sodium Chloride 210 ML 105 MG IV (20:19)
--- NOTE | 2020-07-15 20:23 | PC.NURSE ---
[place] [facility] [place]
--- NOTE | 2020-07-15 21:41 | PC.NURSE ---
report to harsha on [facility] [place].
[2020-07-15] MEDS: Enoxaparin Sodium 40 MG/0.4 ML SYRINGE SUBCUT (22:07)
--- NOTE | 2020-07-15 22:39 | PC.NURSE ---
at 3rd attempt (after interrruptions) report given to harsha CASTAÑEDA.
[2020-07-16] VITALS (7 sets, daily range): BP systolic 116–140; BP diastolic 56–73; PULSE 80–97; RESP 18–20; TEMP 36.2–36.9; O2SAT 91–95; BMI 36.2
[2020-07-16] MEDS: 0.9 % Sodium Chloride Flush 3 ML SYRINGE IVFLUSH ×3 (00:21→16:02)
[2020-07-16 06:51] LABS: Hemoglobin 11.9 g/dl (12.0-16.0); Mean Corpuscular HGB Conc 33.1 g/dl (31.0-35.0); Mean Corpuscular Hemoglobin 28.6 pg (27.0-33.0); Mean Corpuscular Volume 86.5 fL (80-98); Mean Platelet Volume 10.8 fL (9.4-12.3); Platelet Count 252 X10*3/uL (160-400); Red Blood Count 4.16 X10*6/uL (4.20-5.50); Red Cell Distribution Width 12.6 % (11.0-16.0); White Blood Count 10.8 X10*3/uL (4.8-10.8)
[2020-07-16 06:59] LABS: Alanine Aminotransferase 45 U/L (0-31); Albumin Level 3.6 g/dL (3.5-5.0); Alkaline Phosphatase 42 U/L (39-117); Anion Gap 17 (12-20); Aspartate Amino Transferase 22 U/L (5-31); Bilirubin Direct 0.3 mg/dL (0.0-0.5); Bilirubin Total 0.4 mg/dL (0.0-1.0); Blood Urea Nitrogen 10 mg/dL (9-16); Calcium 7.9 mg/dL (8.4-10.2); Carbon Dioxide 25 mmol/L (22-29); Chloride 102 mmol/L (96-108); Creatinine Clr Calc Pharmacy 146.4; Estimated Glomerular Filt Rate > 60; Glucose Random 197 mg/dL (60-115); Potassium 3.4 mmol/l (3.3-5.1); Sodium 141 mmol/L (135-145); Total Protein 6.8 g/dL (6.5-8.0)
[2020-07-16] MEDS: Acetaminophen 325 MG TABLET 650 MG PO ×2 (08:31→16:00)
[2020-07-16] MEDS: dexAMETHasone sod phosphate 4 MG/ML VIAL 6 MG IVPUSH (08:32)
[2020-07-16] MEDS: guaiFENesin DM 100/10/5 ML 5 ML SYRUP PO ×3 (08:38→20:10)
--- NOTE | 2020-07-16 13:15 | MHC.CM.PN ---
CM spoke with patient by phone r/t +MICHELLE. Patient reports she is independent and lives with her dad and stepmom. Patient is currently unemployed and does not have insurance or PCP. Referral made to financial office. Instructed patient once she obtains insurance she will need to pick a PCP and make appt [facility]. Patient does not have a HCP and declines filling one out today. Discussed discharge plan, home no services. stepmom will provide transportation. CM will continue to follow for discharge needs.
[2020-07-16] MEDS: Remdesivir 100 MG in 0.9 % Sodium Chloride 230 ML 115 MG IV (19:01)
[2020-07-16] MEDS: Enoxaparin Sodium 40 MG/0.4 ML SYRINGE SUBCUT (20:10)
[2020-07-17] VITALS (9 sets, daily range): BP systolic 120–137; BP diastolic 67–78; PULSE 63–79; RESP 18–20; TEMP 36.3–36.9; O2SAT 93–96
[2020-07-17] MEDS: Acetaminophen 325 MG TABLET 650 MG PO ×2 (00:09→08:47)
[2020-07-17] MEDS: 0.9 % Sodium Chloride Flush 3 ML SYRINGE IVFLUSH ×3 (00:09→15:02)
[2020-07-17] MEDS: guaiFENesin DM 100/10/5 ML 5 ML SYRUP PO ×4 (00:10→15:04)
[2020-07-17] MEDS: dexAMETHasone sod phosphate 4 MG/ML VIAL 6 MG IVPUSH (08:41)
[2020-07-17 09:15] LABS: Alanine Aminotransferase 38 U/L (0-31); Albumin Level 3.8 g/dL (3.5-5.0); Alkaline Phosphatase 45 U/L (39-117); Anion Gap 14 (12-20); Aspartate Amino Transferase 22 U/L (5-31); Bilirubin Direct 0.2 mg/dL (0.0-0.5); Bilirubin Total 0.5 mg/dL (0.0-1.0); Blood Urea Nitrogen 15 mg/dL (9-16); Calcium 8.1 mg/dL (8.4-10.2); Carbon Dioxide 28 mmol/L (22-29); Chloride 101 mmol/L (96-108); Creatinine Clr Calc Pharmacy 144.2; Estimated Glomerular Filt Rate > 60; Glucose Random 157 mg/dL (60-115); Potassium 3.5 mmol/l (3.3-5.1); Sodium 139 mmol/L (135-145); Total Protein 6.8 g/dL (6.5-8.0)
--- NOTE | 2020-07-17 13:44 | MHC.CM.PN ---
Patient is on 7 liters O2 for +COVID. Also on IV Dexamethasone and IV Remdesivir. Pulm is recommending IV Plasma also. Patient's discharge plan is home no services. Patient's stepmom will provide transport. CM will continue to follow for discharge needs.
[2020-07-17] MEDS: Remdesivir 100 MG in 0.9 % Sodium Chloride 230 ML 115 MG IV (18:00)
--- NOTE | 2020-07-17 18:43 | HO.PM.IMPN ---
Subjective Subjective Date of Service: 07/16/20 Interval History: COVID pneumonia Review of Systems Patient still has shortness of breath and cough, she says her breathing is slightly better than before. Physical Exam Vital Signs: Vital Signs: Last Vital Signs Temp 97.3 F 07/17/20 15:59 Pulse 65 07/17/20 15:59 Resp 18 07/17/20 15:59 BP 120/67 07/17/20 15:59 Pulse Ox 94 07/17/20 15:59 Body Mass Index 36.2 Physical exam: Constitutional: Mild short of breath Cvs: rrr, [id number] , no murmur res: Diminished breath sounds at bases,no rhonchii or wheezing abd: no rebound or guarding ,nt, bs present. ext pulses present , no cyanosis neuro: axo3 , nonfocal. Objective Data Current Medications Generic Name Dose Route Start Last Admin Trade Name Freq PRN Reason Stop Dose Admin Acetaminophen 650 mg 07/14/20 20:49 07/17/20 08:47 Acetaminophen 325 Mg Tablet PO 650 mg Q6H PRN Administration Pain, Mild (Pain Scale 1-3) Dexamethasone Sodium Phosphate 6 mg 07/15/20 09:00 07/17/20 08:41 Dexamethasone Sod Phosphate 4 Mg/Ml Vial IVPUSH 6 mg DAILY MALCOLM Administration Docusate Sodium 100 mg 07/14/20 20:49 Docusate Sodium 100 Mg Capsule PO DAILY PRN Constipation Enoxaparin Sodium 40 mg 07/14/20 21:00 07/16/20 20:10 Enoxaparin Sodium 40 Mg/0.4 Ml Syringe SUBCUT 40 mg Q24H MALCOLM Administration Guaifenesin/Dextromethorphan 5 ml 07/15/20 03:16 07/17/20 15:04 Guaifenesin Dm 100/10/5 Ml 5 Ml Syrup PO 5 ml Q4H PRN Administration Cough Remdesivir 100 mg/ Sodium 230 mls @ 115 mls/hr 07/16/20 19:00 07/17/20 18:00 Chloride IV 07/19/20 20:59 115 mls/hr Q24H MALCOLM Administration Ondansetron HCl 4 mg 07/14/20 20:49 Ondansetron Hcl 4 Mg/2 Ml Vial IVPUSH Q8H PRN Nausea and Vomiting Pharmacy Consult 1 each 07/14/20 16:16 Consult Rx Perform Med Rec MISCELLANE ONCE PRN Consult order Sodium Chloride 3 ml 07/15/20 00:00 07/17/20 15:02 0.9 % Sodium Chloride Flush 3 Ml Syringe IVFLUSH 3 ml QSHIFT MALCOLM Administration Labs CBC & Chem 7: 07/16/20 05:39 07/17/20 08:17 Microbiology Microbiology Results: Microbiology 07/14/20 16:02 Blood - Venous Blood Culture - Preliminary No growth after 48 hours. 07/14/20 16:06 Blood - Venous Blood Culture - Preliminary No growth after 48 hours. Assessment and Plan (1) Acute respiratory failure with hypoxia: Status: Acute (2) Sepsis: Status: Acute (3) COVID-19: Status: Acute Assessment and Plan: 30-year-old female with no significant past medical history who presents to the hospital with complaints of shortness of breath and coughing. Patient was diagnosed with COVID-19 on of this month now is hypoxic 1. acute hypoxic respiratory failure- secondary to COVID pneumonia, negative for PE, bacteria pneumonia less likely as procalcitonin low continue dexamethasone,oxygen supplement, on remdesvir plasma givenx1 pulm -recomended to add plasma also. 2.sepsis- secondary to viral pneumonia tachycardic, febrile, tachypneic normal lactic acid treatment as above. 3. pneumonia due to COVID-19 continue dexamethasone daily, O2 supplement
--- NOTE | 2020-07-17 18:47 | HO.PM.IMPN ---
Subjective Subjective Date of Service: 07/18/20 Interval History: Acute hypoxemic respiratory failure secondary to COVID Review of Systems Patient still has cough and shortness of breath Says slowly improving, denies any chest pain or nausea or vomiting. Physical Exam Vital Signs: Vital Signs: Last Vital Signs Temp 97.3 F 07/17/20 15:59 Pulse 65 07/17/20 15:59 Resp 18 07/17/20 15:59 BP 120/67 07/17/20 15:59 Pulse Ox 94 07/17/20 15:59 Body Mass Index 36.2 Physical exam: Constitutional: Not in acute distress Cvs: [id number], [id number] , no murmur res: Air entry slowly improving,no rhonchii or wheezing abd: no rebound or guarding ,nt, bs present. ext pulses present , no cyanosis neuro: axo3 , nonfocal. Objective Data Current Medications Generic Name Dose Route Start Last Admin Trade Name Freq PRN Reason Stop Dose Admin Acetaminophen 650 mg 07/14/20 20:49 07/17/20 08:47 Acetaminophen 325 Mg Tablet PO 650 mg Q6H PRN Administration Pain, Mild (Pain Scale 1-3) Dexamethasone Sodium Phosphate 6 mg 07/15/20 09:00 07/17/20 08:41 Dexamethasone Sod Phosphate 4 Mg/Ml Vial IVPUSH 6 mg DAILY MALCOLM Administration Docusate Sodium 100 mg 07/14/20 20:49 Docusate Sodium 100 Mg Capsule PO DAILY PRN Constipation Enoxaparin Sodium 40 mg 07/14/20 21:00 07/16/20 20:10 Enoxaparin Sodium 40 Mg/0.4 Ml Syringe SUBCUT 40 mg Q24H MALCOLM Administration Guaifenesin/Dextromethorphan 5 ml 07/15/20 03:16 07/17/20 15:04 Guaifenesin Dm 100/10/5 Ml 5 Ml Syrup PO 5 ml Q4H PRN Administration Cough Remdesivir 100 mg/ Sodium 230 mls @ 115 mls/hr 07/16/20 19:00 07/17/20 18:00 Chloride IV 07/19/20 20:59 115 mls/hr Q24H MALCOLM Administration Ondansetron HCl 4 mg 07/14/20 20:49 Ondansetron Hcl 4 Mg/2 Ml Vial IVPUSH Q8H PRN Nausea and Vomiting Pharmacy Consult 1 each 07/14/20 16:16 Consult Rx Perform Med Rec MISCELLANE ONCE PRN Consult order Sodium Chloride 3 ml 07/15/20 00:00 07/17/20 15:02 0.9 % Sodium Chloride Flush 3 Ml Syringe IVFLUSH 3 ml QSHIFT MALCOLM Administration Labs CBC & Chem 7: 07/16/20 05:39 07/18/20 05:30 Microbiology Microbiology Results: Microbiology 07/14/20 16:02 Blood - Venous Blood Culture - Preliminary No growth after 48 hours. 07/14/20 16:06 Blood - Venous Blood Culture - Preliminary No growth after 48 hours. Assessment and Plan (1) Sepsis: Status: Acute (2) Acute respiratory failure with hypoxia: Status: Acute (3) COVID-19: Status: Acute Assessment and Plan: 30-year-old female with no significant past medical history who presents to the hospital with complaints of shortness of breath and coughing. Patient was diagnosed with COVID-19 on of this month now is hypoxic 1. acute hypoxic respiratory failure- secondary to COVID pneumonia, negative for PE, bacteria pneumonia less likely as procalcitonin low continue dexamethasone,oxygen supplement, on remdesvir plasma givenx1 2.sepsis- secondary to viral pneumonia tachycardic, febrile, tachypneic normal lactic acid treatment as above. 3. pneumonia due to COVID-19 continue dexamethasone daily, O2 supplement
[2020-07-17] MEDS: Enoxaparin Sodium 40 MG/0.4 ML SYRINGE SUBCUT (20:04)
[2020-07-18] VITALS (10 sets, daily range): BP systolic 116–145; BP diastolic 65–76; PULSE 60–75; RESP 18–20; TEMP 36.4–36.9; O2SAT 89–96
[2020-07-18] MEDS: 0.9 % Sodium Chloride Flush 3 ML SYRINGE IVFLUSH ×4 (00:08→22:20)
[2020-07-18] MEDS: Acetaminophen 325 MG TABLET 650 MG PO (01:26)
[2020-07-18] MEDS: guaiFENesin DM 100/10/5 ML 5 ML SYRUP PO ×2 (01:26→15:20)
[2020-07-18 07:08] LABS: Alanine Aminotransferase 33 U/L (0-31); Albumin Level 3.6 g/dL (3.5-5.0); Alkaline Phosphatase 43 U/L (39-117); Anion Gap 17 (12-20); Aspartate Amino Transferase 23 U/L (5-31); Bilirubin Direct 0.2 mg/dL (0.0-0.5); Bilirubin Total 0.5 mg/dL (0.0-1.0); Blood Urea Nitrogen 16 mg/dL (9-16); Carbon Dioxide 26 mmol/L (22-29); Chloride 102 mmol/L (96-108); Creatinine Clr Calc Pharmacy 142.1; Estimated Glomerular Filt Rate > 60; Glucose Random 142 mg/dL (60-115); Potassium 3.8 mmol/l (3.3-5.1); Sodium 141 mmol/L (135-145); Total Protein 6.8 g/dL (6.5-8.0)
[2020-07-18] MEDS: dexAMETHasone sod phosphate 4 MG/ML VIAL 6 MG IVPUSH (07:36)
--- NOTE | 2020-07-18 08:16 | HO.PM.IMPN ---
Subjective Subjective Date of Service: 07/18/20 Interval History: Acute respiratory failure secondary to COVID infection. Review of Systems Patient still short of breath and has cough Denies any chest pain or abdominal pain or fever or chills Physical Exam Vital Signs: Vital Signs: Last Vital Signs Temp 98.1 F 07/18/20 04:24 Pulse 60 07/18/20 04:24 Resp 18 07/18/20 04:24 BP 122/67 07/18/20 04:24 Pulse Ox 94 07/18/20 04:42 Body Mass Index 36.2 Physical exam: Constitutional: Still somewhat short of breath. Cvs: [id number], [id number] , no murmur res:fair air entry,diminshed at bases ,no rhonchii or wheezing abd: no rebound or guarding ,nt, bs present. ext pulses present , no cyanosis neuro: axo3 , nonfocal. Objective Data Current Medications Generic Name Dose Route Start Last Admin Trade Name Freq PRN Reason Stop Dose Admin Acetaminophen 650 mg 07/14/20 20:49 07/18/20 01:26 Acetaminophen 325 Mg Tablet PO 650 mg Q6H PRN Administration Pain, Mild (Pain Scale 1-3) Dexamethasone Sodium Phosphate 6 mg 07/15/20 09:00 07/18/20 07:36 Dexamethasone Sod Phosphate 4 Mg/Ml Vial IVPUSH 6 mg DAILY MALCOLM Administration Docusate Sodium 100 mg 07/14/20 20:49 Docusate Sodium 100 Mg Capsule PO DAILY PRN Constipation Enoxaparin Sodium 40 mg 07/14/20 21:00 07/17/20 20:04 Enoxaparin Sodium 40 Mg/0.4 Ml Syringe SUBCUT 40 mg Q24H MALCOLM Administration Guaifenesin/Dextromethorphan 5 ml 07/15/20 03:16 07/18/20 01:26 Guaifenesin Dm 100/10/5 Ml 5 Ml Syrup PO 5 ml Q4H PRN Administration Cough Remdesivir 100 mg/ Sodium 230 mls @ 115 mls/hr 07/16/20 19:00 07/17/20 20:05 Chloride IV 07/19/20 20:59 Infused Q24H MALCOLM Infusion Ondansetron HCl 4 mg 07/14/20 20:49 Ondansetron Hcl 4 Mg/2 Ml Vial IVPUSH Q8H PRN Nausea and Vomiting Pharmacy Consult 1 each 07/14/20 16:16 Consult Rx Perform Med Rec MISCELLANE ONCE PRN Consult order Sodium Chloride 3 ml 07/15/20 00:00 07/18/20 07:36 0.9 % Sodium Chloride Flush 3 Ml Syringe IVFLUSH 3 ml QSHIFT MALCOLM Administration Labs CBC & Chem 7: 07/16/20 05:39 07/18/20 05:30 Microbiology Microbiology Results: Microbiology 07/14/20 16:02 Blood - Venous Blood Culture - Preliminary No growth after 48 hours. 07/14/20 16:06 Blood - Venous Blood Culture - Preliminary No growth after 48 hours. Assessment and Plan (1) Sepsis: Status: Acute (2) Acute respiratory failure with hypoxia: Status: Acute (3) COVID-19: Status: Acute Assessment and Plan: 30-year-old female with no significant past medical history who presents to the hospital with complaints of shortness of breath and coughing. Patient was diagnosed with COVID-19 on of this month now is hypoxic 1. acute hypoxic respiratory failure- secondary to COVID pneumonia, negative for PE, bacteria pneumonia less likely as procalcitonin low continue dexamethasone,oxygen supplement, on remdesvir plasma givenx2. continue to moniter. 2.sepsis- secondary to viral pneumonia tachycardic, febrile, tachypneic normal lactic acid treatment as above. 3. pneumonia due to COVID-19 continue dexamethasone daily, O2 supplement
[2020-07-18] MEDS: Remdesivir 100 MG in 0.9 % Sodium Chloride 230 ML 115 MG IV (22:19)
[2020-07-18] MEDS: Enoxaparin Sodium 40 MG/0.4 ML SYRINGE SUBCUT (22:19)
[2020-07-19] VITALS (8 sets, daily range): BP systolic 107–136; BP diastolic 64–78; PULSE 62–69; RESP 17–20; TEMP 36.3–36.8; O2SAT 92–97
[2020-07-19 07:18] LABS: Alanine Aminotransferase 47 U/L (0-31); Albumin Level 3.5 g/dL (3.5-5.0); Alkaline Phosphatase 42 U/L (39-117); Anion Gap 16 (12-20); Aspartate Amino Transferase 55 U/L (5-31); Bilirubin Direct 0.2 mg/dL (0.0-0.5); Bilirubin Total 0.5 mg/dL (0.0-1.0); Blood Urea Nitrogen 17 mg/dL (9-16); Calcium 8.1 mg/dL (8.4-10.2); Carbon Dioxide 25 mmol/L (22-29); Chloride 105 mmol/L (96-108); Creatinine Clr Calc Pharmacy 128.9; Estimated Glomerular Filt Rate > 60; Glucose Random 140 mg/dL (60-115); Potassium 3.9 mmol/l (3.3-5.1); Sodium 142 mmol/L (135-145); Total Protein 6.5 g/dL (6.5-8.0)
[2020-07-19] MEDS: dexAMETHasone sod phosphate 4 MG/ML VIAL 6 MG IVPUSH (08:56)
[2020-07-19] MEDS: 0.9 % Sodium Chloride 1,000 ML 75 ML IVCONT ×2 (08:58→22:18)
[2020-07-19] MEDS: 0.9 % Sodium Chloride Flush 3 ML SYRINGE IVFLUSH (09:01)
--- NOTE | 2020-07-19 13:39 | MHC.CM.PN ---
Patient is still on 3 liters O2, IV Dexamethasone, IVF, and IV Remdesivir for +COVID. Discharge plan continue to be home no services. Step mom will provide transport.
[2020-07-19] MEDS: Loperamide HCl 2 MG CAPSULE PO (14:06)
--- NOTE | 2020-07-19 17:03 | P.PNIM_ITS ---
Subjective Subjective Date of Service: 07/19/20 Interval History: Acute respiratory failure secondary to COVID infection. Review of Systems Patient still has shortness of breath and cough Denies any chest pain, nausea or abdominal pain or urinary complaints Physical Exam Vital Signs: Vital Signs: Last Vital Signs Temp 97.8 F 07/19/20 15:37 Pulse 69 07/19/20 15:37 Resp 17 07/19/20 15:37 BP 107/69 07/19/20 15:37 Pulse Ox 96 07/19/20 15:37 Body Mass Index 36.2 Physical exam: Constitutional: short of breath improving. Cvs: [id number], [id number] , no murmur res:fair air entry,diminshed at bases ,no rhonchii or wheezing abd: no rebound or guarding ,nt, bs present. ext pulses present , no cyanosis neuro: axo3 , nonfocal. Objective Data Current Medications Generic Name Dose Route Start Last Admin Trade Name Freq PRN Reason Stop Dose Admin Acetaminophen 650 mg 07/14/20 20:49 07/18/20 01:26 Acetaminophen 325 Mg Tablet PO 650 mg Q6H PRN Administration Pain, Mild (Pain Scale 1-3) Dexamethasone Sodium Phosphate 6 mg 07/15/20 09:00 07/19/20 08:56 Dexamethasone Sod Phosphate 4 Mg/Ml Vial IVPUSH 6 mg DAILY MALCOLM Administration Docusate Sodium 100 mg 07/14/20 20:49 Docusate Sodium 100 Mg Capsule PO DAILY PRN Constipation Enoxaparin Sodium 40 mg 07/14/20 21:00 07/18/20 22:19 Enoxaparin Sodium 40 Mg/0.4 Ml Syringe SUBCUT 40 mg Q24H MALCOLM Administration Guaifenesin/Dextromethorphan 5 ml 07/15/20 03:16 07/18/20 15:20 Guaifenesin Dm 100/10/5 Ml 5 Ml Syrup PO 5 ml Q4H PRN Administration Cough Remdesivir 100 mg/ Sodium 230 mls @ 115 mls/hr 07/16/20 19:00 07/19/20 00:20 Chloride IV 07/19/20 20:59 Infused Q24H MALCOLM Infusion Sodium Chloride 1,000 mls @ 75 mls/hr 07/19/20 08:45 07/19/20 08:58 Ns IVCONT 75 mls/hr .[id number] MALCOLM Administration Ondansetron HCl 4 mg 07/14/20 20:49 Ondansetron Hcl 4 Mg/2 Ml Vial IVPUSH Q8H PRN Nausea and Vomiting Pharmacy Consult 1 each 07/14/20 16:16 Consult Rx Perform Med Rec MISCELLANE ONCE PRN Consult order Sodium Chloride 3 ml 07/15/20 00:00 07/19/20 16:48 0.9 % Sodium Chloride Flush 3 Ml Syringe IVFLUSH Not Given QSHIFT [facility] Labs CBC & Chem 7: 07/16/20 05:39 07/19/20 05:49 Microbiology Microbiology Results: Microbiology 07/14/20 16:02 Blood - Venous Blood Culture - Preliminary No growth after 48 hours. 07/14/20 16:06 Blood - Venous Blood Culture - Preliminary No growth after 48 hours. Assessment and Plan (1) Sepsis: Status: Acute (2) Acute respiratory failure with hypoxia: Status: Acute (3) COVID-19: Status: Acute Assessment and Plan: 30-year-old female with no significant past medical history who presents to the hospital with complaints of shortness of breath and coughing. Patient was d iagnosed with COVID-19 on of this month now is hypoxic 1. acute hypoxic respiratory failure- secondary to COVID pneumonia, negative for PE, bacteria pneumonia less likely as procalcitonin low continue dexamethasone,oxygen taper , on remdesvir 4/5,plasma givenx2. continue to moniter. 2.sepsis- secondary to viral pneumonia tachycardic, febrile, tachypneic normal lactic acid treatment as above. 3. pneumonia due to COVID-19 continue dexamethasone daily, O2 supplement (4) Pneumonia due to COVID-19 virus: Status: Acute (5) Hypoxia: Status: Acute
[2020-07-19] MEDS: Remdesivir 100 MG in 0.9 % Sodium Chloride 230 ML 115 MG IV (20:06)
[2020-07-19 21:17] LABS: Leukocytes Stool Qualitative NEGATIVE (NEGATIVE)
[2020-07-19 21:21] LABS: CDIFF Ag Negative (Negative); CDiff Toxin Negative (Negative)
[2020-07-19 21:22] LABS: CDIFF Internal ctrl Dots and bkg OK (V)
[2020-07-19] MEDS: Enoxaparin Sodium 40 MG/0.4 ML SYRINGE SUBCUT (22:19)
[2020-07-20 00:27] VITALS: PULSE 64; RESP 18; TEMP 36.8; O2SAT 93
[2020-07-20] MEDS: 0.9 % Sodium Chloride Flush 3 ML SYRINGE IVFLUSH ×3 (01:32→15:26)
[2020-07-20] MEDS: 0.9 % Sodium Chloride 1,000 ML 75 ML IVCONT (01:32)
[2020-07-20] MEDS: Acetaminophen 325 MG TABLET 650 MG PO (03:47)
[2020-07-20 04:00] VITALS: BP 134/72; PULSE 64; RESP 18; TEMP 36.2
[2020-07-20 07:41] VITALS: BP 117/69; PULSE 65; RESP 18; TEMP 36.6; O2SAT 93
[2020-07-20 07:56] LABS: Alanine Aminotransferase 69 U/L (0-31); Albumin Level 3.3 g/dL (3.5-5.0); Alkaline Phosphatase 42 U/L (39-117); Anion Gap 13 (12-20); Aspartate Amino Transferase 58 U/L (5-31); Bilirubin Direct 0.2 mg/dL (0.0-0.5); Bilirubin Total 0.3 mg/dL (0.0-1.0); Blood Urea Nitrogen 15 mg/dL (9-16); Calcium 7.6 mg/dL (8.4-10.2); Carbon Dioxide 25 mmol/L (22-29); Chloride 106 mmol/L (96-108); Creatinine Clr Calc Pharmacy 144.2; Estimated Glomerular Filt Rate > 60; Glucose Random 150 mg/dL (60-115); Potassium 3.6 mmol/L (3.3-5.1); Sodium 140 mmol/L (135-145)
[2020-07-20] MEDS: dexAMETHasone sod phosphate 4 MG/ML VIAL 6 MG IVPUSH (08:58)
[2020-07-20 12:00] VITALS: BP 117/72; PULSE 66; RESP 18; TEMP 36.7; O2SAT 92
--- NOTE | 2020-07-20 14:06 | HO.PM.IMPN ---
Subjective Subjective Date of Service: 07/20/20 Interval History: Acute hypoxemic failure secondary to COVID infection. Review of Systems Patient shortness of breath is improving Denies any chest pain or abdominal pain or urinary complaint or nausea or vomiting or fever. Physical Exam Vital Signs: Vital Signs: Last Vital Signs Temp 98.0 F 07/20/20 12:00 Pulse 66 07/20/20 12:00 Resp 18 07/20/20 12:00 BP 117/72 07/20/20 12:00 Pulse Ox 92 07/20/20 12:00 Body Mass Index 36.2 Physical exam: constitutional:not in acute distress. Cvs: rrr, [id number] , no murmur res: Fair air entry ,no rhonchii or wheezing abd: no rebound or guarding ,nt, bs present. ext pulses present , no cyanosis neuro: axo3 , nonfocal. Objective Data Current Medications Generic Name Dose Route Start Last Admin Trade Name Freq PRN Reason Stop Dose Admin Acetaminophen 650 mg 07/14/20 20:49 07/20/20 03:47 Acetaminophen 325 Mg Tablet PO 650 mg Q6H PRN Administration Pain, Mild (Pain Scale 1-3) Dexamethasone Sodium Phosphate 6 mg 07/15/20 09:00 07/20/20 08:58 Dexamethasone Sod Phosphate 4 Mg/Ml Vial IVPUSH 6 mg DAILY MALCOLM Administration Docusate Sodium 100 mg 07/14/20 20:49 Docusate Sodium 100 Mg Capsule PO DAILY PRN Constipation Enoxaparin Sodium 40 mg 07/14/20 21:00 07/19/20 22:19 Enoxaparin Sodium 40 Mg/0.4 Ml Syringe SUBCUT 40 mg Q24H MALCOLM Administration Guaifenesin/Dextromethorphan 5 ml 07/15/20 03:16 07/18/20 15:20 Guaifenesin Dm 100/10/5 Ml 5 Ml Syrup PO 5 ml Q4H PRN Administration Cough Sodium Chloride 1,000 mls @ 75 mls/hr 07/19/20 08:45 07/20/20 01:32 Ns IVCONT 75 mls/hr .[id number] MALCOLM Administration Ondansetron HCl 4 mg 07/14/20 20:49 Ondansetron Hcl 4 Mg/2 Ml Vial IVPUSH Q8H PRN Nausea and Vomiting Pharmacy Consult 1 each 07/14/20 16:16 Consult Rx Perform Med Rec MISCELLANE ONCE PRN Consult order Sodium Chloride 3 ml 07/15/20 00:00 07/20/20 08:58 0.9 % Sodium Chloride Flush 3 Ml Syringe IVFLUSH 3 ml QSHIFT MALCOLM Administration Labs CBC & Chem 7: 07/16/20 05:39 07/20/20 05:58 Microbiology Microbiology Results: Microbiology 07/14/20 16:02 Blood - Venous Blood Culture - Final No growth after 5 days. 07/14/20 16:06 Blood - Venous Blood Culture - Final No growth after 5 days. Assessment and Plan (1) Acute respiratory failure with hypoxia: Status: Acute (2) COVID-19: Status: Acute Assessment and Plan: 30-year-old female with no significant past medical history who presents to the hospital with complaints of shortness of breath and coughing. Patient was diagnosed with COVID-19 on of this month now is hypoxic 1. acute hypoxic respiratory failure- secondary to COVID pneumonia, negative for PE, bacteria pneumonia less likely as procalcitonin low continue dexamethasone,oxygen taper , on remdesvir 5/5,plasma givenx2. continue to moniter. 2.sepsis- secondary to viral pneumonia Resolved normal lactic acid treatment as above. 3. pneumonia due to COVID-19 continue dexamethasone daily, O2 supplement (3) Sepsis: Status: Acute (4) Pneumonia due to COVID-19 virus: Status: Acute (5) Hypoxia: Status: Acute
[2020-07-20 16:00] VITALS: BP 119/71; PULSE 84; RESP 18; TEMP 36.4; O2SAT 94
[2020-07-20 19:19] VITALS: BP 123/70; PULSE 74; RESP 18; TEMP 36.4; O2SAT 96
[2020-07-20] MEDS: Enoxaparin Sodium 40 MG/0.4 ML SYRINGE SUBCUT (22:54)
[2020-07-21] VITALS: BP 130/66; PULSE 68; RESP 20; TEMP 36.6; O2SAT 94
[2020-07-21 04:00] VITALS: BP 133/67; PULSE 69; RESP 22; TEMP 36.4; O2SAT 96
[2020-07-21 07:06] VITALS: BP 142/89; PULSE 58; RESP 18; TEMP 36; O2SAT 97
[2020-07-21 07:22] LABS: Alanine Aminotransferase 84 U/L (0-31); Albumin Level 3.3 g/dL (3.5-5.0); Alkaline Phosphatase 41 U/L (39-117); Anion Gap 14 (12-20); Aspartate Amino Transferase 40 U/L (5-31); Bilirubin Direct 0.2 mg/dL (0.0-0.5); Bilirubin Total 0.5 mg/dL (0.0-1.0); Blood Urea Nitrogen 13 mg/dL (9-16); Calcium 7.8 mg/dL (8.4-10.2); Carbon Dioxide 24 mmol/L (22-29); Chloride 106 mmol/L (96-108); Creatinine Clr Calc Pharmacy 148.7; Estimated Glomerular Filt Rate > 60; Glucose Random 177 mg/dL (60-115); Potassium 3.7 mmol/L (3.3-5.1); Sodium 140 mmol/L (135-145)
[2020-07-21] MEDS: dexAMETHasone sod phosphate 4 MG/ML VIAL 6 MG IVPUSH (08:21)
[2020-07-21] MEDS: 0.9 % Sodium Chloride Flush 3 ML SYRINGE IVFLUSH (08:21)
--- NOTE | 2020-07-21 12:14 | MHC.CM.PN ---
pt to DC home today with no services. Per previous CM notes, pt will self arrange transportation
[2020-07-22 07:31] LABS: Estimated Average Glucose 200 mg/dL; Hemoglobin A1c % 8.6 %
--- NOTE | 2020-07-28 15:56 | P.DS_ITS ---
DS: Providers Provider Date of Service: 07/21/20 Date of admission: 07/14/20 20:49 Primary care physician: None Physician Consults: 07/14/20 20:49 Consult to Infectious Diseases Routine Consulting Provider: Cayla Carlisle Reason for consultation: covid pt hypoxic Has provider been notified: No 07/15/20 09:00 Consult to Pulmonology Routine Consulting Provider: Rashel Devine Reason for consultation: Acute hypoxemic respiratory failure secondary to COVID. Has provider been notified: No DS: Diagnosis Discharge Diagnosis (1) Acute respiratory failure with hypoxia: Status: Acute (2) COVID-19: Status: Acute (3) Sepsis: Status: Acute (4) Pneumonia due to COVID-19 virus: Status: Acute (5) Hypoxia: Status: Acute DS: Medications Discharge Medications Home Medications: Previous Rx's Medication Instructions Recorded dexamethasone 6 mg PO DAILY #3 tab 07/21/20 omeprazole 20 mg PO DAILY #30 cap 07/21/20 DS: Summary Hospital Course Hospital Course: 30-year-old female with no past medical history presents to the hospital with complaints of shortness of breath and cough. Patient was diagnosed with COVID- 19 on of this month and reports that at that time she had a fever, chills, headache and that is why she got tested, 2 days ago she started developing shortness of breath, coughing, nausea vomiting, diarrhea, and weakness. Patient also reports loss of appetite. Her shortness of breath got so severe today that she had to call EMS. She otherwise denies any change in vision, no chest pain, no palpitations, no urinary symptoms and no lower extremity edema. On arrival patient has a temp of 100.9, heart rate of 112, respiratory rate of 22, blood pressure 141/74, noted to be satting 76% on ambulation to the bathroom. I tried to bring down her oxygen which she was on 15 L of non- rebreather attempt in that caused her oxygen level to drop to 92% on 9L Labs are significant for WBC count of 5.5, PT of 14.9, INR 1.3, sodium of 138, potassium 3.2, BUN of 7, creatinine of 0.7, ferritin 720, AST 43, ALT 71, LDH of 342, S start P of 16.[address] angiogram negative for PE, showed bilateral infiltrates. Hospital course: Patient came to the hospital because of acute respiratory failure secondary and viral sepsis to COVID pneumonia: Subsequently started on IV Solu-Medrol, remdesivir, plasma, oxygen support : With supportive care she improved now off oxygen and walking fine. Saturating above 90s on room air. Patient will go home on dexamethasone and complete the course. She has mild elevated LFTs: Probably due to viral isssue/ probable hepatic steatois: Patient was encouraged to lose weight, monitor LFTs with PCP and consider outpatient abdominal ultrasound for further workup outpatient If remain elevated LFT kim. Above management discussed with the patient and she understand in detail. She wants to arrange her own appointment. A fingersticks are in 140-180 range: Probably related to dexamethasone: Patient needs to follow-up out patiently with PCP, and check hemoglobin A1c. Currently patient is asymptomatic and we will avoid adding diabetic medication. She was told to follow diabetic diet for now until she gets her hemoglobin A1c done. Above management discussed with the patient in detail length she understand and in agreement with the above plan, time spent 50 minutes and 50% time spent on counseling. Significant findings: As above. Procedures performed: None. Treatment and response: As above. Complications: None. Time Spent with Patient Time attestation: Total time spent providing and/or coordinating discharge services: Discharge coordination time: Greater than 30 minutes Physical Exam Vital Signs: Vital Signs: Last Vital Signs Temp 96.8 F 07/21/20 07:06 Pulse 58 07/21/20 07:06 Resp 18 07/21/20 07:06 BP 142/89 H 07/21/20 07:06 Pulse Ox 97 07/21/20 07:06 Body Mass Index 36.2 Physical exam: Constitutional: Not in acute distress, pleasant. Heent: Eyes: Anicteric, no discharge Neck supple. Cvs: rrr, [id number] , no murmur res: clear to auscultation ,no rhonchii or wheezing abd: no rebound or guarding ,nt, bs present. ext pulses present , no cyanosis neuro: axo3 , nonfocal. DS: Data Data Completed and Pending Completed studies during hospitalization [Text1]: Procedures Introduction of Remdesivir Anti-infective into Peripheral Vein, Percutaneous Approach, [employer] 5 (07/14/20) Transfusion of Convalescent Plasma (Nonautologous) into Peripheral Vein, Percutaneous Approach, [employer] (07/14/20) Labs on day of discharge: Laboratory Tests 07/14/20 07/14/20 07/14/20 16:01 16:01 16:02 WBC 5.5 RBC 4.27 Hgb 12.4 Hct 36.4 L MCV 85.2 MCH 29.0 MCHC 34.1 RDW 12.5 Plt Count 161 MPV 10.8 Immature Gran % (Auto) 0.4 Neut % (Auto) 85.5 H Lymph % (Auto) 10.1 L [place] % (Auto) 4.0 Eos % (Auto) 0.0 Baso % (Auto) 0.0 Lymph # (Auto) 0.6 L [place] # (Auto) 0.2 Eos # (Auto) 0.0 Baso # (Auto) 0.0 Abs Immat Gran (auto) 0.02 Absolute Neuts (auto) 4.7 Absolute Nucleated RBC 0.000 Nucleated RBC % (auto) 0.0 Smear Tech's Comments VERIFIED Hold Purple Top PT 14.9 H INR 1.3 H D-Dimer 263 Sodium 138 Potassium 3.2 L Chloride 102 Carbon Dioxide 26 Anion Gap 13 BUN 7 L Creatinine 0.70 Estim Creat Clear Calc 138.0 Estimated GFR > 60 POC Glucose Random Glucose 198 H Estimat Average Glucose Hemoglobin A1c % Lactic Acid Calcium 7.9 L Magnesium 1.8 Ferritin 723 H Total Bilirubin 0.4 Direct Bilirubin 0.2 AST 43 H ALT 71 H Alkaline Phosphatase 45 Lactate Dehydrogenase 342 H C-Reactive Protein 16.58 H Total Protein 6.8 Albumin 3.9 Procalcitonin Beta HCG, Quant Urine Color Urine Appearance Urine pH Ur Specific [place] Urine Protein Urine Glucose (UA) Urine Ketones Urine Blood Urine Nitrite Ur Leukocyte Esterase Urine RBC Urine WBC Ur Squamous Epith Cells Urine Bacteria Urine Mucus Stool Leukocytes, Qual C. difficile Toxin A&B C. difficile Antigen C. difficile Interpret Blood Type Antibody Screen 07/14/20 07/14/20 07/14/20 16:02 16:02 16:02 WBC RBC Hgb Hct MCV MCH MCHC RDW Plt Count MPV Immature Gran % (Auto) Neut % (Auto) Lymph % (Auto) [place] % (Auto) Eos % (Auto) Baso % (Auto) Lymph # (Auto) [place] # (Auto) Eos # (Auto) Baso # (Auto) Abs Immat Gran (auto) Absolute Neuts (auto) Absolute Nucleated RBC Nucleated RBC % (auto) Smear Tech's Comments Hold Purple Top PT INR D-Dimer Sodium Potassium Chloride Carbon Dioxide Anion Gap BUN Creatinine Estim Creat Clear Calc Estimated GFR POC Glucose Random Glucose Estimat Average Glucose Hemoglobin A1c % Lactic Acid 1.1 Calcium Magnesium Ferritin Total Bilirubin Direct Bilirubin AST ALT Alkaline Phosphatase Lactate Dehydrogenase C-Reactive Protein Total Protein Albumin Procalcitonin 0.10 Beta HCG, Quant < 2 Urine Color Urine Appearance Urine pH Ur Specific [place] Urine Protein Urine Glucose (UA) Urine Ketones Urine Blood Urine Nitrite Ur Leukocyte Esterase Urine RBC Urine WBC Ur Squamous Epith Cells Urine Bacteria Urine Mucus Stool Leukocytes, Qual C. difficile Toxin A&B C. difficile Antigen C. difficile Interpret Blood Type Antibody Screen 07/14/20 07/14/20 07/15/20 16:03 20:02 04:46 WBC RBC Hgb Hct MCV MCH MCHC RDW Plt Count MPV Immature Gran % (Auto) Neut % (Auto) Lymph % (Auto) [place] % (Auto) Eos % (Auto) Baso % (Auto) Lymph # (Auto) [place] # (Auto) Eos # (Auto) Baso # (Auto) Abs Immat Gran (auto) Absolute Neuts (auto) Absolute Nucleated RBC Nucleated RBC % (auto) Smear Tech's Comments Hold Purple Top SEE NOTE PT INR D-Dimer Sodium Potassium Chloride Carbon Dioxide Anion Gap BUN Creatinine Estim Creat Clear Calc Estimated GFR POC Glucose 200 H Random Glucose Estimat Average Glucose Hemoglobin A1c % Lactic Acid Calcium Magnesium Ferritin Total Bilirubin Direct Bilirubin AST ALT Alkaline Phosphatase Lactate Dehydrogenase C-Reactive Protein Total Protein Albumin Procalcitonin Beta HCG, Quant Urine Color YELLOW Urine Appearance HAZY Urine pH 6.5 Ur Specific [place] <= 1.005 Urine Protein NEG Urine Glucose (UA) 500 H Urine Ketones 15 Urine Blood 3+ H Urine Nitrite NEG Ur Leukocyte Esterase NEG Urine RBC 1-4 Urine WBC 1-4 Ur Squamous Epith Cells 2+ Urine Bacteria 2+ Urine Mucus 2+ Stool Leukocytes, Qual C. difficile Toxin A&B C. difficile Antigen C. difficile Interpret Blood Type Antibody Screen 07/15/20 07/15/20 07/15/20 06:15 06:15 19:35 WBC 9.2 RBC 4.45 Hgb 12.7 Hct 38.8 MCV 87.2 MCH 28.5 MCHC 32.7 RDW 12.5 Plt Count 186 MPV 10.8 Immature Gran % (Auto) 0.7 H Neut % (Auto) 87.2 H Lymph % (Auto) 8.3 L [place] % (Auto) 3.7 Eos % (Auto) 0.0 Baso % (Auto) 0.1 Lymph # (Auto) 0.8 L [place] # (Auto) 0.3 Eos # (Auto) 0.0 Baso # (Auto) 0.0 Abs Immat Gran (auto) 0.06 H Absolute Neuts (auto) 8.0 Absolute Nucleated RBC 0.000 Nucleated RBC % (auto) 0.0 Smear Tech's Comments Hold Purple Top PT INR D-Dimer Sodium 140 Potassium 3.7 Chloride 102 Carbon Dioxide 24 Anion Gap 18 BUN 8 L Creatinine 0.74 Estim Creat Clear Calc 130.6 Estimated GFR > 60 POC Glucose Random Glucose 215 H Estimat Average Glucose Hemoglobin A1c % Lactic Acid Calcium 7.8 L Magnesium Ferritin Total Bilirubin 0.4 Direct Bilirubin 0.2 AST 34 H ALT 63 H Alkaline Phosphatase 44 Lactate Dehydrogenase C-Reactive Protein Total Protein 7.0 Albumin 4.0 Procalcitonin Beta HCG, Quant Urine Color Urine Appearance Urine pH Ur Specific [place] Urine Protein Urine Glucose (UA) Urine Ketones Urine Blood Urine Nitrite Ur Leukocyte Esterase Urine RBC Urine WBC Ur Squamous Epith Cells Urine Bacteria Urine Mucus Stool Leukocytes, Qual C. difficile Toxin A&B C. difficile Antigen C. difficile Interpret Blood Type O Positive Antibody Screen NEGATIVE 07/16/20 07/16/20 07/17/20 05:39 05:39 08:17 WBC 10.8 RBC 4.16 L Hgb 11.9 L Hct 36.0 L MCV 86.5 MCH 28.6 MCHC 33.1 RDW 12.6 Plt Count 252 D MPV 10.8 Immature Gran % (Auto) Neut % (Auto) Lymph % (Auto) [place] % (Auto) Eos % (Auto) Baso % (Auto) Lymph # (Auto) [place] # (Auto) Eos # (Auto) Baso # (Auto) Abs Immat Gran (auto) Absolute Neuts (auto) Absolute Nucleated RBC 0.000 Nucleated RBC % (auto) 0.0 Smear Tech's Comments Hold Purple Top PT INR D-Dimer Sodium 141 139 Potassium 3.4 3.5 Chloride 102 101 Carbon Dioxide 25 28 Anion Gap 17 14 BUN 10 15 Creatinine 0.66 0.67 Estim Creat Clear Calc 146.4 144.2 Estimated GFR > 60 > 60 POC Glucose Random Glucose 197 H 157 H Estimat Average Glucose Hemoglobin A1c % Lactic Acid Calcium 7.9 L 8.1 L Magnesium Ferritin Total Bilirubin 0.4 0.5 Direct Bilirubin 0.3 0.2 AST 22 22 ALT 45 H 38 H Alkaline Phosphatase 42 45 Lactate Dehydrogenase C-Reactive Protein Total Protein 6.8 6.8 Albumin 3.6 3.8 Procalcitonin Beta HCG, Quant Urine Color Urine Appearance Urine pH Ur Specific [place] Urine Protein Urine Glucose (UA) Urine Ketones Urine Blood Urine Nitrite Ur Leukocyte Esterase Urine RBC Urine WBC Ur Squamous Epith Cells Urine Bacteria Urine Mucus Stool Leukocytes, Qual C. difficile Toxin A&B C. difficile Antigen C. difficile Interpret Blood Type Antibody Screen 07/18/20 07/19/20 07/19/20 05:30 05:49 19:56 WBC RBC Hgb Hct MCV MCH MCHC RDW Plt Count MPV Immature Gran % (Auto) Neut % (Auto) Lymph % (Auto) [place] % (Auto) Eos % (Auto) Baso % (Auto) Lymph # (Auto) [place] # (Auto) Eos # (Auto) Baso # (Auto) Abs Immat Gran (auto) Absolute Neuts (auto) Absolute Nucleated RBC Nucleated RBC % (auto) Smear Tech's Comments Hold Purple Top PT INR D-Dimer Sodium 141 142 Potassium 3.8 3.9 Chloride 102 105 Carbon Dioxide 26 25 Anion Gap 17 16 BUN 16 17 H Creatinine 0.68 0.75 Estim Creat Clear Calc 142.1 128.9 Estimated GFR > 60 > 60 POC Glucose Random Glucose 142 H 140 H Estimat Average Glucose Hemoglobin A1c % Lactic Acid Calcium 8.0 L 8.1 L Magnesium Ferritin Total Bilirubin 0.5 0.5 Direct Bilirubin 0.2 0.2 AST 23 55 H ALT 33 H 47 H Alkaline Phosphatase 43 42 Lactate Dehydrogenase C-Reactive Protein Total Protein 6.8 6.5 Albumin 3.6 3.5 Procalcitonin Beta HCG, Quant Urine Color Urine Appearance Urine pH Ur Specific [place] Urine Protein Urine Glucose (UA) Urine Ketones Urine Blood Urine Nitrite Ur Leukocyte Esterase Urine RBC Urine WBC Ur Squamous Epith Cells Urine Bacteria Urine Mucus Stool Leukocytes, Qual NEGATIVE C. difficile Toxin A&B C. difficile Antigen C. difficile Interpret Blood Type Antibody Screen 07/19/20 07/20/20 07/21/20 19:56 05:58 05:54 WBC RBC Hgb Hct MCV MCH MCHC RDW Plt Count MPV Immature Gran % (Auto) Neut % (Auto) Lymph % (Auto) [place] % (Auto) Eos % (Auto) Baso % (Auto) Lymph # (Auto) [place] # (Auto) Eos # (Auto) Baso # (Auto) Abs Immat Gran (auto) Absolute Neuts (auto) Absolute Nucleated RBC Nucleated RBC % (auto) Smear Tech's Comments Hold Purple Top PT INR D-Dimer Sodium 140 140 Potassium 3.6 3.7 Chloride 106 106 Carbon Dioxide 25 24 Anion Gap 13 14 BUN 15 13 Creatinine 0.67 0.65 Estim Creat Clear Calc 144.2 148.7 Estimated GFR > 60 > 60 POC Glucose Random Glucose 150 H 177 H Estimat Average Glucose Hemoglobin A1c % Lactic Acid Calcium 7.6 L D 7.8 L Magnesium Ferritin Total Bilirubin 0.3 0.5 Direct Bilirubin 0.2 0.2 AST 58 H 40 H ALT 69 H 84 H Alkaline Phosphatase 42 41 Lactate Dehydrogenase C-Reactive Protein Total Protein 6.0 L 6.0 L Albumin 3.3 L 3.3 L Procalcitonin Beta HCG, Quant Urine Color Urine Appearance Urine pH Ur Specific [place] Urine Protein Urine Glucose (UA) Urine Ketones Urine Blood Urine Nitrite Ur Leukocyte Esterase Urine RBC Urine WBC Ur Squamous Epith Cells Urine Bacteria Urine Mucus Stool Leukocytes, Qual C. difficile Toxin A&B Negative C. difficile Antigen Negative C. difficile Interpret SEE NOTE Blood Type Antibody Screen 07/21/20 05:54 WBC RBC Hgb Hct MCV MCH MCHC RDW Plt Count MPV Immature Gran % (Auto) Neut % (Auto) Lymph % (Auto) [place] % (Auto) Eos % (Auto) Baso % (Auto) Lymph # (Auto) [place] # (Auto) Eos # (Auto) Baso # (Auto) Abs Immat Gran (auto) Absolute Neuts (auto) Absolute Nucleated RBC Nucleated RBC % (auto) Smear Tech's Comments Hold Purple Top PT INR D-Dimer Sodium Potassium Chloride Carbon Dioxide Anion Gap BUN Creatinine Estim Creat Clear Calc Estimated GFR POC Glucose Random Glucose Estimat Average Glucose 200 Hemoglobin A1c % 8.6 Lactic Acid Calcium Magnesium Ferritin Total Bilirubin Direct Bilirubin AST ALT Alkaline Phosphatase Lactate Dehydrogenase C-Reactive Protein Total Protein Albumin Procalcitonin Beta HCG, Quant Urine Color Urine Appearance Urine pH Ur Specific [place] Urine Protein Urine Glucose (UA) Urine Ketones Urine Blood Urine Nitrite Ur Leukocyte Esterase Urine RBC Urine WBC Ur Squamous Epith Cells Urine Bacteria Urine Mucus Stool Leukocytes, Qual C. difficile Toxin A&B C. difficile Antigen C. difficile Interpret Blood Type Antibody Screen Discharge Plan Discharge Patient Disposition: Home, Self-Care Referrals: Physician,None [Primary Care Provider] - Discharge Medications: New dexamethasone 6 mg tablet 6 mg PO DAILY Qty: 3 RF: 0 omeprazole 20 mg capsule,delayed release(DR/EC) 20 mg PO DAILY Qty: 30 RF: 0 Discontinued acetaminophen [Tylenol Extra Strength] 500 mg tablet 1,000 mg PO QID PRN (Reason: fever or pain) Qty: 14 RF: 0 azithromycin 250 mg tablet See Rx Instructions .ROUTE .COMPLEX Qty: 6 RF: 0 ibuprofen 800 mg tablet 800 mg PO Q8H PRN (Reason: pain) Qty: 14 RF: 0 Discharge Orders: Discharge Order (Routine); Ordered 07/21/20 Ordered By: Kaia Kevin Diet: advance to usual diet, diabetic diet and low salt diet Activity on Discharge: As tolerated Stand Alone Forms: Patient Portal Discharge page Visit Report Forms: Patient Portal Discharge page Care Plan Goals: Patient came to the hospital because of acute respiratory failure secondary and viral sepsis to COVID pneumonia: Subsequently started on IV Solu-Medrol, remdesivir, plasma, oxygen support : With supportive care she improved now off oxygen and walking fine. Saturating above 90s on room air. Patient will go home on dexamethasone and complete the course. She has mild elevated LFTs: Probably due to viral isssue/ probable hepatic steatois: Patient was encouraged to lose weight, monitor LFTs with PCP and consider outpatient abdominal ultrasound for further workup outpatient If remain elevated LFT kim. Above management discussed with the patient and she understand in detail. She wants to arrange her own appointment. A fingersticks are in 140-180 range: Probably related to dexamethasone: Patient needs to follow-up out patiently with PCP, and check hemoglobin A1c. Currently patient is asymptomatic and we will avoid adding diabetic medication. She was told to follow diabetic diet for now until she gets her hemoglobin A1c done. Health Concerns: As above. Plan of Treatment: As above. Discharge Date/Time: 07/21/20 12:50
== END 2020-07-21 12:50 | disposition home or self-care (01) | DRG 177 ==
LOC: HO.ED 20:21 → HO.EDOVER 20:57 → HO.IMC 07-15 20:13
PROVIDERS: Nurse Practitioner Family; Physician Assistant Medical; Admitting Provider Internal Medicine; Emergency Provider Internal Medicine; Visit Provider Internal Medicine
DX: U07.1 COVID-19 (principal); A41.89 Other specified sepsis; J96.01 Acute respiratory failure with hypoxia; J12.82 Pneumonia due to coronavirus disease 2019; E87.6 Hypokalemia
CPT/HCPCS: 36415; 71045; 71275; 80048; 80076; 81001; 82728; 82947; 83036; 83605; 83615; 83735; 84145; 84702; 85025; 85027; 85379; 85610; 86140; 86850; 86900; 86901; 87040; 87324; 87449; 89055; 93005; 94640; 96361; 96365; 96375; 99285; 99291; J0696; J1100; J1650; J3490; Q9967

== ENCOUNTER 2020-09-24 11:29 | Outpatient (REF) | payer MEDICAID, SELFPAY ==
--- NOTE | ~2020-09-24 | US_ITS ---
EXAMINATION: US COMPLETE ABDOMEN WITH LIVER ELASTOGRAPHY CLINICAL INFORMATION: Abnormal liver function tests COMPARISON: Chest CTA June 2020 TECHNIQUE: Real-time imaging of the abdominal viscera. Noninvasive ultrasound liver fibrosis assessment is performed using Sandie ElastPQ point quantification shear wave elastography (pSWE) with a C5-2 MHz transducer. Multiple elastography samples are obtained. FINDINGS: PANCREAS: Normal. ABDOMINAL AORTA: The proximal, middle, and distal aortic segments are normal in caliber. INFERIOR VENA CAVA: Visualized portions are normal. LIVER: Liver echotexture is increased. The liver is enlarged. The liver is normal in contour. No focal lesion or intrahepatic biliary duct dilatation. The right lobe measures 21 cm in length. The left lobe measures 18 cm in length. Portal flow is normal/hepatopedal Shear wave liver elastography median stiffness is 1.6 m/s (reference: normal median stiffness is 1.3 m/s or less). IQR/median stiffness to assess sampling precision is 0.17 (reference: good quality data set is IQR/median stiffness of 0.15 or less). GALLBLADDER: Normal. The gallbladder is physiologically distended without evidence of stones, sludge, polyps, wall thickening or pericholecystic fluid. COMMON BILE DUCT: Normal in caliber measuring 0.3 cm in diameter. RIGHT KIDNEY: Normal. No hydronephrosis. No renal calculi or focal parenchymal lesions. The kidney measures 12 cm in maximum dimension. LEFT KIDNEY: Normal. No hydronephrosis. No renal calculi or focal parenchymal lesions. The kidney measures 12 cm in maximum dimension. SPLEEN: Normal. The spleen measures 12 cm in maximum dimension. FREE FLUID: None. US/US abdomen comp w elastography IMPRESSION: 1. Impression enlarged echogenic liver suggestive of fatty infiltration. 2. Liver elastography: Slightly limited due to sampling error. In the absence of other known clinical signs, rule out compensated advanced chronic liver disease. REFERENCE: Society of Radiologists in Ultrasound Liver Stiffness Thresholds (2020): LIVER STIFFNESS THRESHOLDS: *Liver Stiffness equal or less than 1.3 m/s: High probability of being normal. *Liver Stiffness less than 1.7 m/s: In the absence of other known clinical signs, rules out compensated advanced chronic liver disease. *Liver Stiffness 1.7-2.1 m/s: Suggestive of compensated advanced chronic liver disease but need further test for confirmation. *Liver Stiffness over 2.1 m/s: Rules in compensated advanced chronic liver disease. *Liver Stiffness over 2.4 m/s: Suggestive of clinically significant portal hypertension. QUALITY OF DATA SET: *IQR/Median value equal or less than 0.15 implies a quality data set. *IQR/Median value over 0.15 implies a poor quality data set. SIGNIFICANT CHANGE FROM PRIOR EXAM: Significant change if liver stiffness measurement is 10% or greater from prior exam. OTHER CONSIDERATIONS: The stage of liver fibrosis may be overestimated in the setting of acute hepatitis, liver inflammation, elevated liver function tests, hepatic vascular congestion, obstructive cholestasis, non-fasting state, and infiltrative diseases such as amyloidosis and lymphoma. In some patients with NAFLD, the liver stiffness thresholds for compensated advanced chronic liver disease may be lower. In causes other than viral hepatitis and NAFLD, liver stiffness thresholds are not well established.
== END 2020-09-24 11:30 | disposition home or self-care (01) ==
LOC: HO.US 11:29
PROVIDERS: Visit Provider Internal Medicine
DX: R94.5 Abnormal results of liver function studies (principal); K76.0 Fatty (change of) liver, not elsewhere classified; R74.8 Abnormal levels of other serum enzymes
CPT/HCPCS: 76705; 76981

== ENCOUNTER 2020-12-02 14:55 | Outpatient (REF) | payer MEDICAID, SELFPAY ==
--- NOTE | ~2020-12-02 | XR_ITS ---
EXAMINATION: XR KNEE, LEFT CLINICAL INFORMATION: Pain. COMPARISON: None TECHNIQUE: Four views of the left knee. FINDINGS: Tricompartment joint spaces normal. No bony erosive changes, loose bodies or joint effusion seen. No acute fracture or dislocation. XR/XR knee LT 4V IMPRESSION: Unremarkable left knee exam.
== END 2020-12-02 14:56 | disposition home or self-care (01) ==
LOC: HO.XRAY 14:55
PROVIDERS: PCP Internal Medicine; Visit Provider Internal Medicine
DX: M25.562 Pain in left knee (principal)
CPT/HCPCS: 73564

== ENCOUNTER 2022-01-10 10:43 | Emergency (ER) | payer MEDICAID, SELFPAY ==
[2022-01-10 11:29] VITALS: BP 145/95; PULSE 99; RESP 18; TEMP 35.9; O2SAT 99; BMI 35.7
[2022-01-10 15:00] LABS: Hematocrit 43.1 % (37.0-47.0); Hemoglobin 14.3 g/dl (12.0-16.0); Mean Corpuscular HGB Conc 33.2 g/dl (31.0-35.0); Mean Corpuscular Hemoglobin 28.6 pg (27.0-33.0); Mean Corpuscular Volume 86.2 fL (80.0-98.0); Mean Platelet Volume 10.9 fL (9.4-12.3); Platelet Count 170 X10*3/uL (160-400); Red Cell Distribution Width 13.2 % (11.0-16.0); White Blood Count 5.4 X10*3/uL (4.8-10.8)
[2022-01-10 15:07] LABS: Appearance Urine HAZY; Color Urine YELLOW; Glucose Urine UA NEG (NEG); Leukocyte Esterase Urine NEG (NEG); Nitrite Urine NEG (NEG); PH 5.5 (5.0-8.0); Specific Gravity - Urine >= 1.030 (1.005-1.025); Urine Blood NEG (NEG); Urine Ketones NEG (NEG); Urine Protein NEG (NEG-TRACE)
[2022-01-10 15:15] LABS: COVID-19 Test Negative (Negative)
[2022-01-10 15:24] LABS: Alanine Aminotransferase 102 U/L (0-31); Albumin Level 4.4 g/dL (3.5-5.0); Alkaline Phosphatase 65 U/L (39-117); Anion Gap 11 (12-20); Aspartate Amino Transferase 52 U/L (5-31); Bilirubin Total 0.4 mg/dL (0.0-1.0); Blood Urea Nitrogen 11 mg/dL (9-16); Calcium 9.3 mg/dL (8.4-10.2); Carbon Dioxide 28 mmol/L (22-29); Chloride 103 mmol/L (96-108); Estimated Glomerular Filt Rate > 60; Glucose Random 130 mg/dL (60-115); Potassium 3.9 mmol/L (3.3-5.1); Sodium 138 mmol/L (135-145); Total Protein 7.8 g/dL (6.5-8.0)
[2022-01-10 15:56] LABS: Atypical Lymph Absolute Manual 0.8 x10*3/uL; Atypical Lymphs Percent Manual 15 % (0-6); Band Neutrophils Percent 1 % (3-5); Basophils Abs Manual 0.1 X10*3/uL (0.0-0.2); Basophils Percent Manual 1 % (0-2); Eosinophils Absolute Manual 0.2 X10*3/uL (0.0-0.4); Eosinophils Percent Manual 3 % (0-4); Lymphocytes Absolute Manual 1.6 X10*3/uL (1.2-4.9); Lymphocytes Percent Manual 29 % (20-40); Monocytes Absolute Manual 0.6 X10*3/uL (0.1-1.2); Monocytes Percent Manual 11 % (2-11); Neutrophils Absolute Manual 2.2 X10*3/uL (2.0-8.3); Neutrophils Percent Manual 40 % (45-73); Platelet Estimate SLIGHTLY DECREASED (NORMAL); Platelet Morphology Comment NORMAL; RBC Morphology NORMAL
[2022-01-10 15:57] LABS: Polychromasia 2+ (3-5) /OIF; Smudge Cells PRESENT; Tear Drop Cells 2+ (3-5) /OIF; Toxic Vacuolation PRESENT
[2022-01-10 18:31] VITALS: BP 122/74; PULSE 91; TEMP 37.1; O2SAT 99
== END 2022-01-10 22:36 | disposition left against medical advice (07) ==
LOC: HO.ED 22:36
PROVIDERS: Emergency Provider Emergency Medicine; PCP Internal Medicine
DX: R10.9 Unspecified abdominal pain (principal); M54.2 Cervicalgia; Z20.822 Contact with and (suspected) exposure to COVID-19
CPT/HCPCS: 80053; 81003; 85007; 85025; 85027; 87635; 99283; 99284

== ENCOUNTER 2022-09-03 14:14 | Outpatient (REF) | payer MEDICAID, SELFPAY ==
--- NOTE | 2022-09-03 09:45 | EMG_ITS ---
Bilateral median and ulnar motor and sensory studies were performed. Bilateral radial sensory studies were performed and paraspinal muscles were tested with a needle. IMPRESSION: 1. [id number] left and mild right median neuropathy across carpal tunnel. 2. Mild right ulnar neuropathy across cubital tunnel. MD AMY Beard/JASSON / [id number]
== END 2022-09-03 14:15 | disposition home or self-care (01) ==
LOC: HO.NEURO 14:14
PROVIDERS: PCP Internal Medicine; Visit Provider Emergency Medicine
DX: R20.0 Anesthesia of skin (principal)
CPT/HCPCS: 95886; 95911

== ENCOUNTER → 2022-12-03 09:39 | Outpatient (BNVA) | payer OTHER, SELFPAY | PROVIDERS: PCP Internal Medicine; Visit Provider Physician Assistant | DX: Z13.89 Encounter for screening for other disorder (principal) | CPT/HCPCS: 12001; 99202 ==

== ENCOUNTER → 2022-12-04 11:13 | Outpatient (BNVA) | payer OTHER, SELFPAY | PROVIDERS: PCP Internal Medicine; Visit Provider Internal Medicine | DX: Z13.89 Encounter for screening for other disorder (principal) | CPT/HCPCS: 99213 ==

== ENCOUNTER → 2022-12-17 12:59 | Outpatient (BNVA) | payer OTHER, SELFPAY | PROVIDERS: PCP Internal Medicine; Visit Provider Internal Medicine | DX: Z13.89 Encounter for screening for other disorder (principal) | CPT/HCPCS: 99213 ==

== ENCOUNTER → 2023-12-02 09:48 | Outpatient (BNVA) | payer OTHER, SELFPAY | PROVIDERS: PCP Internal Medicine; Visit Provider Registered Nurse | DX: Z13.89 Encounter for screening for other disorder (principal) | CPT/HCPCS: 12001; 99203 ==

== ENCOUNTER → 2023-12-03 08:45 | Outpatient (BNVA) | payer OTHER, SELFPAY | PROVIDERS: PCP Internal Medicine; Visit Provider Registered Nurse | DX: Z13.89 Encounter for screening for other disorder (principal) | CPT/HCPCS: 99213 ==

== ENCOUNTER → 2023-12-06 13:59 | Outpatient (BNVA) | payer OTHER, SELFPAY | PROVIDERS: PCP Internal Medicine; Visit Provider Registered Nurse | DX: Z13.89 Encounter for screening for other disorder (principal) | CPT/HCPCS: 99213 ==

== ENCOUNTER → 2023-12-15 10:47 | Outpatient (BNVA) | payer OTHER, SELFPAY | PROVIDERS: PCP Internal Medicine; Visit Provider Registered Nurse | DX: Z13.89 Encounter for screening for other disorder (principal) | CPT/HCPCS: 99213 ==

== ENCOUNTER → 2023-12-17 13:02 | Outpatient (BNVA) | payer OTHER, SELFPAY | PROVIDERS: PCP Internal Medicine; Visit Provider Registered Nurse | DX: Z13.89 Encounter for screening for other disorder (principal) | CPT/HCPCS: 99213 ==

== ENCOUNTER → 2023-12-20 13:59 | Outpatient (BNVA) | payer OTHER, SELFPAY | PROVIDERS: PCP Internal Medicine; Visit Provider Physician Assistant Medical | DX: Z13.89 Encounter for screening for other disorder (principal) | CPT/HCPCS: 99213 ==

== ENCOUNTER → 2023-12-22 08:10 | Outpatient (BNVA) | payer OTHER, SELFPAY | PROVIDERS: PCP Internal Medicine; Visit Provider Internal Medicine | DX: Z13.89 Encounter for screening for other disorder (principal) | CPT/HCPCS: 99213 ==

== ENCOUNTER → 2023-12-30 13:42 | Outpatient (BNVA) | payer OTHER, SELFPAY | PROVIDERS: PCP Internal Medicine; Visit Provider Physician Assistant Medical | DX: Z13.89 Encounter for screening for other disorder (principal) | CPT/HCPCS: 99213 ==

== ENCOUNTER 2024-11-09 15:17 | Outpatient (REF) | payer MEDICAID, SELFPAY ==
--- OUTSIDE RECORDS SUMMARY | 2024-11-09 15:19 | XMS_ITS | Clinical Summary ---
Author Organization [facility] Address [address] [place] [address] Phone Care Team Providers Care Library Consultant Name Role Phone Valentine Troncoso MD Primary Care Provide r Social History Tobacco Use Types Packs/Day Years Used Date Smoking Tobacco: Never Assessed Comments Unknown Sex and Gender Information Value Date Recorded Sex Assigned at Not on file Legal Sex Female 4:50 AM EST Gender Identity Not on file Sexual Orientation Not on file Plan of Treatment Upcoming Encounters Date Type Department Care Team ([facility] Contact Info) Description 11/20/2024 2:45 PM EDT Consult Orthopedic Surgery - [place] [id number] [phone] Manuel Mccloud DPM [address] [address] Health Maintenance Due Date Last Done Comments DTaP,Tdap,and Td Vaccines (1 - Tdap) 2010 Hepatitis B Vaccines (1 of 3 - 19+ 3-dose series) 2010 Pneumococcal Vaccine: Pediat rics (0 to 5 Years) and At-Risk Patients (6 to 64 Years) (1 of 2 - PCV) 2010 Cervical Cancer Screening: P ap Smear 2012 COVID-19 Vaccine (2023-2 5 season) 2024 Depression Screening 07/18/2024 HIV Screening 07/18/2024 Hepatitis C Screening 07/18/2024 Social Influencers of Health Screening 07/18/2024 Influenza Vaccine (Season Ended) 2025 HIB Vaccines Aged Out No longer eligi ble based on patient's age to complete this topic HPV Vaccines Aged Out No longer eligi ble based on patient's age to complete this topic Hepatitis A Vaccines Aged Out No long er eligible based on patient's age to complete this topic IPV Vaccines Aged Out No longer eligi ble based on patient's age to complete this topic MMR Vaccines Aged Out No longer eligi ble based on patient's age to complete this topic Meningococcal ACWY Vaccine Aged Out N o longer eligible based on patient's age to complete this topic Meningococcal B Vaccine Aged Out No l onger eligible based on patient's age to complete this topic RSV Immunization Patients Un booker 20 months Aged Out No longer eligible b ased on patient's age to complete this topic Varicella Vaccines Aged Out No longer eligible based on patient's age to complete this topic Insurance MEDICAID - [place] [facility] Care Teams Library Consultant Relationship Specialty Start Date End Date Valentine Troncoso MD [address] [place] [phone] PCP - General Internal Medicine 07/18/24
[2024-11-09 16:41] LABS: Alanine Aminotransferase 38 U/L (0-31); Albumin Level 4.6 g/dL (3.5-5.0); Alkaline Phosphatase 77 U/L (39-117); Anion Gap 14 (12-20); Aspartate Amino Transferase 22 U/L (5-31); Bilirubin Total 0.2 mg/dL (0.0-1.0); Blood Urea Nitrogen 15 mg/dL (9-16); Calcium 9.4 mg/dL (8.4-10.2); Carbon Dioxide 27 mmol/L (22-29); Chloride 105 mmol/L (96-108); Cholesterol 242 mg/dL (<200); Estimated Glomerular Filt Rate > 60; Glucose Random 112 mg/dL (60-115); HDL Cholesterol 48 mg/dL (>40); LDL Cholesterol Calculated 142 mg/dL (<100); Potassium 3.6 mmol/L (3.3-5.1); Sodium 142 mmol/L (135-145); Total Protein 8.1 g/dL (6.5-8.0); Triglycerides 264 mg/dL (<150)
[2024-11-09 16:49] LABS: Microalbum/Creatinine Ratio Ur 5.3 ug/mg cr (<30)
[2024-11-12 05:08] LABS: TS Negative Control Passed; TS Panel A 0; TS Panel B 0; TS Positive Control Passed; TSpotTB Negative (Negative)
== END 2024-11-09 15:18 | disposition home or self-care (01) ==
LOC: HO.HHCL 15:17
PROVIDERS: Visit Provider Internal Medicine
DX: E11.65 Type 2 diabetes mellitus with hyperglycemia (principal); Z11.1 Encounter for screening for respiratory tuberculosis
CPT/HCPCS: 36415; 80053; 80061; 82043; 82570; 86481

== ENCOUNTER 2025-02-13 09:28 | Emergency (ER) | payer MEDICAID, SELFPAY ==
--- NOTE | ~2025-02-13 | XR_ITS ---
EXAMINATION: XR CHEST CLINICAL INFORMATION: Chest pain COMPARISON: 07/14/2020 TECHNIQUE: AP view of the chest was obtained. FINDINGS: The cardiac, hilar, and mediastinal contours are normal. The lungs are clear bilaterally. No pneumothorax or effusion. No focal osseous or soft tissue abnormality. XR/XR chest 1V IMPRESSION: Normal chest. Electronically signed by: Davie Huang MD 02/13/2025 01:23 PM EDT
--- NOTE | 2025-02-13 09:32 | ECG_ITS ---
Test Reason : CP Blood Pressure : */* mmHG Vent. Rate : 94 BPM Atrial Rate : 94 BPM P-R Int : 148 ms QRS Dur : 84 ms QT Int : 348 ms P-R-T Axes : 34 53 16 degrees QTcB Int : 435 ms Normal sinus rhythm Cannot rule out Anterior infarct , age undetermined ; could be related to body habitus and lead placement Abnormal ECG When compared with ECG of 14-Jul-2020 16:23, No significant changes seen Referred By: Generic ED Physician Electronically Signed By: JUAN ZHENG
[2025-02-13 09:39] VITALS: BP 132/69; PULSE 95; RESP 16; TEMP 37; O2SAT 100; BMI 32.6
[2025-02-13 10:01] LABS: MANUAL DIFF FLAG NO
[2025-02-13 10:06] LABS: Hematocrit 41.0 % (37.0-47.0); Hemoglobin 13.9 g/dl (12.0-16.0); Imm Gran Abs Auto 0.03 X10*3/uL (0.00-0.03); Imm Gran Pct Auto 0.4 % (0.0-0.4); Lymphocytes Absolute Auto 1.8 X10*3/uL (1.2-4.9); Mean Corpuscular HGB Conc 33.9 g/dl (31.0-35.0); Mean Corpuscular Hemoglobin 29.3 pg (27.0-33.0); Mean Corpuscular Volume 86.5 fL (80.0-98.0); NRBC Abs Auto 0.000 X10*3/uL (0.0-0.012); NRBC Pct Auto 0.0 /100WBC (0.0-0.2); Platelet Count 231 X10*3/uL (160-400); Red Blood Count 4.74 X10*6/uL (4.20-5.50); White Blood Count 7.8 X10*3/uL (4.8-10.8)
[2025-02-13 10:11] VITALS: BP 127/44; PULSE 89; RESP 16; O2SAT 99
--- NOTE | 2025-02-13 10:13 | ED.CHESTPAIN ---
HPI - Chest Pain General Chief Complaint: Chest Pain Stated Complaint: Chest pain, SOB, dizziness Time Seen by Provider: 02/13/25 10:04 Source: patient Mode of arrival: ambulatory Limitations: no limitations History of Present Illness ED Provider: DR. Mancini HPI narrative: 34-year-old female history of diabetes came in for evaluation of evaluation of palpitation with chest pain since yesterday, symptoms is intermittent triggered by taking a deep breath, no clear relieving factor, no clear aggravating factors, no history of thyroid problems, no history of smoking or using drugs, patient admit to drink plenty of caffeinated soda, no lower extremity swelling or or pain, no recent travel, patient admit to stress in her personal life for the past few days, declined chance of being . Related Data Previous Rx's ?Medication ?Instructions ?Recorded dexamethasone 6 mg tablet 6 mg PO DAILY #3 tabs 07/21/20 omeprazole 20 mg capsule,delayed 20 mg PO DAILY #30 caps 07/21/20 release cephalexin 500 mg tablet 500 mg PO QID #40 tabs 12/15/23 amoxicillin 875 mg-potassium 1 tab PO BID 10 days #20 tabs 12/20/23 clavulanate 125 mg tablet Allergies Allergy/AdvReac Type Severity Reaction Status Date / Time No Known Allergies Allergy Verified 02/13/25 09:44 Review of Systems Review of Systems: All other systems are reviewed and are negative Constitutional: Reports as per HPI and Reports no additional constitutional complaints Eyes: Reports as per HPI and Reports no additional eye complaints Reports system reviewed and no additional complaints, except as documented Cardiovascular: Reports as per HPI and Reports no additional cardiovascular complaints Respiratory: Reports as per HPI and Reports no additional respiratory complaints Gastrointestinal: Reports as per HPI and Reports no additional gastrointestinal complaints Genitourinary: Reports no additional female genitourinary complaints Musculoskeletal: Reports no additional musculoskeletal complaints Skin/Breast: Reports system reviewed and no additional complaints, except as docu Psychiatric: Reports no additional psychiatric complaints Endocrine: Reports no additional endocrine complaints Hematologic/Lymphatic: Reports no additional hematologic/lymphatic complaints Allergic/Immunologic: Reports no additional allergic/immunologic complaints Reports system reviewed and no additional complaints, except as documented and Reports Abnormal speech present PMFSH Past Medical History Medical History No known health problems Social History Social History Household Members: Family Household Members Other:: Father and step mother Housing: House Do you presently have visiting nurse or other home services: No Alcohol intake: current Alcohol intake frequency: a few times a month Alcohol type: hard liquor Patient Tobacco Use Status: Never used Tobacco Smoked in Last 30 Days: No Advance Directives: No Advance Directives Information Provided: No service: No Current occupational status: unemployed Physical Exam Vital Signs: Vital Signs: Last Vital Signs Temp 98.6 F 02/13/25 09:39 Pulse 78 02/13/25 12:36 Resp 14 02/13/25 12:36 BP 108/55 L 02/13/25 12:36 Pulse Ox 99 02/13/25 12:36 O2 Del Method Room Air 02/13/25 12:36 BMI result Body Mass Index 32.6 Vital signs have been reviewed and appear to be correct. Blood pressure elevated. Heart rate normal. Respiratory rate normal. Temperature normal. Oxygen saturation normal. Appearance: Alert. Oriented X3. No acute distress. Head: Normal external exam. Normocephalic. Atraumatic. No Acevedo signs noted. No raccoon eyes noted Eyes: PERRLA. EOMI. Conjunctiva and sclera normal. Eyelids normal. ENT: TM's Normal. Pharynx normal. Uvula midline. Moist mucous membranes. No trismus noted. No drooling noted. No muffled voice noted. Neck: Normal inspection. Neck supple. FROM. No adenopathy. Thyroid Normal. No meningeal signs. No neck mass noted. CVS: Normal heart rate and rhythm. Heart sound normal. No murmurs noted. Pulses normal throughout. Respiratory: No respiratory distress. Painless inspiration. Breath sounds normal. No wheezes/rales/rhonchi noted. Chest nontender. No accessory muscle usage noted or decreased air movement noted. Abdomen: Soft and nontender. Bowel sounds normal in all 4 quadrants. No distention noted. No organomegaly noted. No visible injury noted. Back: No CVA tenderness. Full range of motion noted. Skin: Skin warm and dry. Normal skin color. Normal skin turgor. No rashes/lesions/lacerations noted. Extremities: No lower extremity edema. Extremities exhibit normal range of motion. Extremities nontender. Neuro: Oriented X 3. Cranial nerve exam: II-XII are grossly intact No motor deficit. No sensory deficit. Reflexes normal. Course Reevaluation(s) Reevaluation #1: No palpitation while patient in the ED, unremarkable EKG, labs are unremarkable, no risk for DVT or pulmonary embolism with negative D-dimer. Patient was instructed to follow-up with her PCP and if symptoms persist to follow-up with a cafe lead as per PCP. Time: 13:30 Medical Decision Making Differential Diagnosis Differential Diagnoses: The differential diagnosis associated with the presentation includes (Pulmonary embolism, atrial dysrhythmia, ventricular dysrhythmia, electrolyte derangement, severe anemia.) Admission/Observation Consideration of admission/observation: Escalation of care including admission/observation considered Lab Data MDM Lab Attestation statement: I reviewed the patient's lab results. 02/13/25 09:56 02/13/25 09:56 Labs: Lab Results 02/13/25 02/13/25 Range/Units 09:56 10:36 WBC 7.8 (4.8-10.8) X10*3/uL RBC 4.74 (4.20-5.50) X10*6/uL Hgb 13.9 (12.0-16.0) g/dl Hct 41.0 (37.0-47.0) % MCV 86.5 (80.0-98.0) fL MCH 29.3 (27.0-33.0) pg MCHC 33.9 (31.0-35.0) g/dl RDW 12.8 (11.0-16.0) % Plt Count 231 D (160-400) X10*3/uL MPV 11.5 (9.4-12.3) fL Immature Gran % (Auto) 0.4 (0.0-0.4) % Neut % (Auto) 70.6 (45-73) % Lymph % (Auto) 22.7 (20-40) % Canyon % (Auto) 4.8 (2-11) % Eos % (Auto) 1.0 (0-4) % Baso % (Auto) 0.5 (0-2) % Lymph # (Auto) 1.8 (1.2-4.9) X10*3/uL Canyon # (Auto) 0.4 (0.1-1.2) X10*3/uL Eos # (Auto) 0.1 (0.0-0.4) X10*3/uL Baso # (Auto) 0.0 (0.0-0.2) X10*3/uL Abs Immat Gran (auto) 0.03 (0.00-0.03) X10*3/uL Absolute Neuts (auto) 5.5 (2.0-8.3) x10*3/uL Absolute Nucleated RBC 0.000 (0.0-0.012) X10*3/uL Nucleated RBC % (auto) 0.0 (0.0-0.2) /100WBC D-Dimer High Sensitivty < 150 NG/ML Sodium 139 (135-145) mmol/L Potassium 4.0 (3.3-5.1) mmol/L Chloride 105 (96-108) mmol/L Carbon Dioxide 23 (22-29) mmol/L Anion Gap 15 (12-20) BUN 16 (9-16) mg/dL Creatinine 0.86 (0.5-1.4) mg/dL Estim Creat Clear Calc 106.0 Estimated GFR > 60 Random Glucose 218 H (60-115) mg/dL Calcium 9.2 (8.4-10.2) mg/dL Phosphorus 3.2 (2.7-4.5) mg/dL Magnesium 2.0 (1.6-2.6) mg/dL Troponin I High Sens < 2.7 (<3.5-17.0) ng/L TSH 2.43 (0.32-4.0) uIU/mL Free T4 0.85 (0.71-1.85) ng/dL Urine Test NEGATIVE (NEGATIVE) Independent Interpretation I performed an independent interpretation of an: Plain X-Ray (No acute pathology.) Radiology Impression Discussion of test interpretation with radiology: I have reviewed the radiologist's reading. Discharge Plan Discharge Clinical Impression: Palpitations Patient Disposition: Home, Self-Care Instructions: Heart Palpitations (ED) Prescriptions: No Action amoxicillin-pot clavulanate 875-125 mg tablet 1 tab PO BID 10 Days Qty: 20 0RF dexamethasone 6 mg tablet 6 mg PO DAILY Qty: 3 0RF omeprazole 20 mg capsule,delayed release(DR/EC) 20 mg PO DAILY Qty: 30 0RF cephalexin 500 mg tablet 500 mg PO QID Qty: 40 0RF Referrals: Valentine Troncoso MD [Primary Care Provider, Internal Medicine] Sandeep Kathleen MD [Physician, Cardiology] Print Language: Citizen Of [place]
[2025-02-13 10:17] LABS: Anion Gap 15 (12-20); Blood Urea Nitrogen 16 mg/dL (9-16); Calcium 9.2 mg/dL (8.4-10.2); Carbon Dioxide 23 mmol/L (22-29); Chloride 105 mmol/L (96-108); Creatinine Clr Calc Pharmacy 106.0; Estimated Glomerular Filt Rate > 60; Potassium 4.0 mmol/L (3.3-5.1); Sodium 139 mmol/L (135-145)
[2025-02-13 10:26] LABS: Troponin-I High Sensitivity < 2.7 ng/L (<3.5-17.0)
[2025-02-13 10:39] LABS: Free T4 (Free Thyroxine) 0.85 ng/dL (0.71-1.85); Thyroid Stimulating Hormone 2.43 uIU/mL (0.32-4.0)
[2025-02-13 10:48] LABS: UPreg QC Valid YES
[2025-02-13 11:00] LABS: D Dimer High Sensitivity < 150 NG/ML
[2025-02-13 11:05] LABS: Magnesium 2.0 mg/dL (1.6-2.6)
--- OUTSIDE RECORDS SUMMARY | 2025-02-13 11:11 | XMS_ITS | Encounter Summary ---
Author Organization [employer] Address [address] [facility] 7 [place] [address] Care Team Providers Care Airport Location Manager Name Role Phone Valentine Troncoso MD Primary Care Provide r Reason for Visit * Reason Onset Date Comments Prior Authorization 08/30/2023 Encounter Details Date Type Department Care Team ([facility] Contact Info) Description 08/30/2023 Telephone [facility] MEDICINE [address] [place] [address] Valentine Troncoso MD [address] [place] [address] Prior Authorization Social History Tobacco Use Types Packs/Day Years Used Date Smoking Tobacco: Never Smokeless Tobacco: Never Housing Stability Answer Date Recorded What is your housing situation today? I have milo castillo 08/02/[address] you li ve. Do you have problems with any of the following? None of the above 08/02/2023 Food Insecurity Answer Date Recorded Within the past 12 months, y ou worried that your food would run out before you got money to buy more: Never True 08/02/2023 Within the past 12 months,th e food you bought just didn't last and you didn't have enough money to get more: Never True 05/2024 Transportation Answer Date Recorded In the past 12 months, has l ack of transportation kept you from medical appts, meetings, work or from getting things needed for daily living? No 08/02/2023 Utilities Answer Date Recorded In the past 12 months, has t he electric, gas, oil or water company threatened to shut off services in your home? No 08/02/2023 Comments Yes Sex and Gender Information Value Date Recorded Sex Assigned at Female 04/20/2022 10:16 AM EDT Legal Sex Female 10:16 AM EDT Gender Identity Female 04/20/2022 10:16 AM EDT Sexual Orientation Straight 04/20/2022 10 :16 AM EDT documented as of this encounter Miscellaneous Notes * Telephone Encounter - Heather Lottanda - 09/06/2023 3:34 PM EDT PLEASE READ MESSAGE BELOW AND ADVICE, IF AGREE PROVIDE NOTES AND DX TO SUPPORT THE NEED. * Telephone Encounter - Geovanna Prabhakar - 08/30/2023 11:21 AM EDT Tc from pt requesting PA for; glucose blood (OneTouch Ultra) test strip OneTouch Delica Lancets 33G [facility] Blood Glucose Monitoring Suppl (ONE TOUCH ULTRA 2) w/Device kit documented in this encounter Plan of Treatment Upcoming Encounters Date Type Department Care Team (Late st Contact Info) Description 05/09/2025 8:00 AM EST Office Visit [facility] ADULT DENTAL [address] [place] [address] Augusto, Nora [address] [place] [address] documented as of this encounter Visit Diagnoses Not on filedocumented in this encounter Care Teams Airport Location Manager Relationship Specialty Start Date End Date Valentine Troncoso MD [address] [place] [address] PCP - General Internal Medicine 03/02/23 documented as of this encounter
--- OUTSIDE RECORDS SUMMARY | 2025-02-13 11:11 | XMS_ITS | Clinical Summary ---
Author Organization [address] [facility] Address [address] [place] [address] Phone Care Team Providers Care Showroom Manager Name Role Phone Valentine Troncoso MD Primary Care Provide r Social History Tobacco Use Types Packs/Day Years Used Date Smoking Tobacco: Never Assessed Comments Unknown Sex and Gender Information Value Date Recorded Sex Assigned at Not on file Legal Sex Female 4:50 AM EST Gender Identity Not on file Sexual Orientation Not on file Plan of Treatment Health Maintenance Due Date Last Done Comments DTaP,Tdap,and Td Vaccines (1 - Tdap) 2010 Hepatitis B Vaccines (1 of 3 - 19+ 3-dose series) 2010 Pneumococcal Vaccine: Pediat rics (0 to 5 Years) and At-Risk Patients (6 to 49 Years) (1 of 2 - PCV) 2010 Cervical Cancer Screening: P ap Smear 2012 COVID-19 Vaccine ( - 2023-2 5 season) 2024 Depression Screening 06/21/2024 HIV Screening 07/18/2024 Hepatitis C Screening 07/18/2024 Social Influencers of Health Screening 07/18/2024 Influenza Vaccine (#1) 2025 HIB Vaccines Aged Out No longer [...] complete this topic Insurance MEDICAID - [place] [facility] Care Teams Showroom Manager Relationship Specialty Start Date End Date Valentine Troncoso MD [address] [place] [phone] PCP - General Internal Medicine 07/18/24
--- OUTSIDE RECORDS SUMMARY | 2025-02-13 11:11 | XMS_ITS | Encounter Summary ---
Author Organization [employer] Address [address] [facility] [address] [place] [address] Care Team Providers Care Margin Analyst Name Role Phone Valentine Troncoso MD Primary Care Provide r Encounter Details Date Type Department Care Team ([facility] st Contact Info) Description 07/17/2024 Orders Only [facility] MEDICINE [address] [place] [address] Monie Frank Social History Tobacco Use Types Packs/Day Years Used Date Smoking Tobacco: Never Passive Smoke Exposure: Never Smokeless Tobacco: Never Alcohol Use Standard Drinks/Week Comments Never 0 (1 standard drink = 0.6 oz pur e alcohol) Depression Answer Date Recorded Patient Health Questionnaire-9 Score 0 06/27/2024 Patient Health Questionnaire-9 Score 0 06/27/2024 Last PHQ-9: Questionnaire Data Not on file 0 06/27/2024 Housing Stability Answer Date Recorded What is [...] off services in your home? No 08/02/2023 Depression Answer Date Recorded Patient Health Questionnaire-2 Score 0 06/27/2024 Internet Access Answer Date Recorded Internet Access Q1 Yes 06/27/2024 Internet Access Q2 Not on file 06/27/2024 Comments Unknown Sex and Gender Information Value Date Recorded Sex Assigned at Female 04/20/2022 10:16 AM EDT Legal Sex Female 10:16 AM EDT Gender Identity Female 04/20/2022 10:16 AM EDT Sexual Orientation Straight 04/20/2022 10 :16 AM EDT documented as of this encounter Plan of Treatment Upcoming Encounters Date Type Department Care Team (Late st Contact Info) Description 05/09/2025 8:00 AM EST Office Visit [facility] ADULT DENTAL [address] [place], [place] [phone] Augusto, Nora [address] [place] [phone] documented as of this encounter Procedures Procedure Name Priority Date/Time Associated Diagnosis Comments PAP/HPV Routine 09/03/2023 12:00 AM EDT documented in this encounter Results * HM PAP/HPV (09/03/2023 12:00 AM EDT) Pap Smear 1. NILM 1. NILM [facility] HPV Not Detected Undetected, Indeterminat e, Quantitative , Not Detected [facility] us Historical Provider [facility] Edited Result - Final [facility] [address] [place] [address] documented in this encounter Visit Diagnoses Not on filedocumented in this encounter Additional Health Concerns Assessment Noted Time PHQ-9 Depression Total Score: 0 06/27/19 25 9:15 AM EST documented as of this encounter Care Teams Margin Analyst Relationship Specialty Start Date End Date Valentine Troncoso MD [address] [place], [place] [phone] PCP - General Internal Medicine 03/02/23 documented as of this encounter
--- OUTSIDE RECORDS SUMMARY | 2025-02-13 11:12 | XMS_ITS | Clinical Summary ---
Author Organization [employer] Address [address] [facility] [address] [place] [address] Care Team Providers Care Binder And Wrapper Packer Name Role Phone Valentine Troncoso MD Primary Care Provide r Allergies No known active allergies Medications topiramate (Topamax) 25 MG tabletIndication s:Headache disorder TAKE 1 TABLET BY MOUTH EVERY DAY 90 tablet 1 3 Active Additional Information Patient not taking.Reported on 10/24/2024 Lancets miscIndications: Type 2 diabetes mellitus without complication, unspecified whether terminal superintendent insulin use (CMS/[facility]) Use to test blood sugar 2 times daily 100 each 2 4 Active Blood Glucose Monitoring Suppl (FreeStyle Winchester Lite) w/Device kitIndications:T ype 2 diabetes mellitus without complication, unspecified whether retirement insulin use (CMS/[facility]) Use to test blood sugar 2 times daily 1 kit 4 Active OneTouch Delica Lancets 33G miscIndications: Type 2 diabetes mellitus with hyperglycemia, without long-term current use of insulin (CMS/[facility]) Use to test blood sugar 2 times daily 100 each 11 4 Active Blood Glucose Monitoring Suppl (ONE TOUCH ULTRA 2) w/Device kitIndications:T ype 2 diabetes mellitus with hyperglycemia, without long-term current use of insulin (CMS/[facility]) Use to test blood sugar 2 times daily 1 kit 4 Active Blood Glucose Monitoring Suppl (Accu-Chek Sheila Plus) w/Device kit 1 each 2 times daily. TEST BLOOD SUGAR TWICE A DAY 1 kit 4 Active Accu-Chek FastClix Lancets misc 1 each 2 times daily. TEST BLOOD SUGAR TWICE A DAY 100 each 11 4 Active FREESTYLE LITE test stripIndications :Type 2 diabetes mellitus without complication, unspecified whether retirement insulin use ([facility]) Use to test blood sugar 2 times daily 100 each 12 4 03/24/20 25 Active Lancets miscIndications: Type 2 diabetes mellitus without complication, unspecified whether terminal superintendent insulin use ([facility]) Use to test blood sugar 2 times daily 100 each 2 4 Active Alcohol Swabs 70 % padsIndications: Type 2 diabetes mellitus without complication, unspecified whether retirement insulin use (CMS/HCC) Use to test blood sugar 2 times daily 100 each 2 4 Active Blood Glucose Monitoring Suppl (FreeStyle Winchester Lite) w/Device kitIndications:T ype 2 diabetes mellitus without complication, unspecified whether retirement insulin use ([facility]) Use to test blood sugar 2 times daily 1 kit 4 Active ciclopirox (Penlac) 8 % solutionIndicati ons:Onychomycosi s Apply topically at bedtime. 6 mL 5 Active Additional Information Patient not taking.Reported on 10/24/2024 ibuprofen 800 MG tabletIndication s:Dysmenorrhea Take 1 tablet (800 mg) by mouth every 8 (eight) hours if needed for mild pain or moderate pain. 30 tablet 1 5 Active Chlorhexidine Gluconate 4 % solutionIndicati ons:Hidradenitis suppurativa Apply 1 Application topically 3 (three) times a week. 473 mL 5 Active Dulaglutide (Trulicity) 0.75 MG/0.5ML solution auto-injectorInd ications:Type 2 diabetes mellitus with hyperglycemia, without long-term current use of insulin ([facility]) Inject 0.75 mg under the skin 1 (one) time per week. 0.5 mL 3 5 Active metFORMIN (Glucophage) 500 MG tabletIndication s:Type 2 diabetes mellitus with hyperglycemia, without long-term current use of insulin (CMS/HCC) TAKE 1 TABLET BY MOUTH TWICE DAILY WITH BREAKFAST AND WITH DINNER 180 tablet 1 5 Active Active Problems Problem Noted Date Diagnosed Date Tuberculosis screening 11/09/2024 Tipped teeth 10/24/2024 Acute gingival inflammation 10/24/2024 Tooth impaction 10/24/2024 Periodontal disease 10/24/2024 Dental calculus 10/24/2024 Hidradenitis suppurativa 10/16/2024 Onychomycosis 06/27/2024 Dysmenorrhea 06/27/2024 Primary hypertension 03/24/2024 Assessment & Plan (10/16/2024 4:35 PM EDT): Diabetes is: not controlled - Lab Results Component Value Date HGBA1C 7.2 (A) 10/16/2024 HGBA1C 6.6 (A) 06/27/2024 HGBA1C 5.5 03/24/2024 - Lab Results Component Value Date MICROALBUR 0.4 08/29/2021 CREATININE 0.76 01/10/2022 -Changes: I added today Trulicity 0.75 mg weekly - Diabetic eye exam: Up-to-date - Diabetic foot exam: Up-to-date - Continue lifestyle modifications - Continue current medications - Follow up: 3 months Assessment & Plan (06/27/2024 10:14 AM EST): Patient finish her nifedipine but did not ask for refills she has not beng taking her medication, reports she feels good, she does have a BP cuff at home I ask to log BP for next appointment for now nifedipine will remain on hold Assessment & Plan (03/27/2024 5:10 PM EDT): I will start patient on nifedipine 30mg daily I advise low Na diet Monitor BP at home and bring log for next appointment Acute bilateral low back pain without sciatica 1 Assessment & Plan (03/27/2024 5:16 PM EDT): Apply heat on affected area Acetaminophen PRN Flexeril Q 8hrs patient is aware of side effects I advise not to drive while on this medication Encounter for preventive health examination 07/23 Assessment & Plan (11/09/2024 4:09 PM EDT): See HPI Assessment & Plan (08/12/2023 4:02 PM EST): See HPI Type 2 diabetes mellitus wit h hyperglycemia, without long-term current use of insulin 08/12/2023 Assessment & Plan (11/09/2024 4:09 PM EDT): Diabetes is: almost at goal - Lab Results Component Value Date HGBA1C 7.2 (A) 10/16/2024 HGBA1C 6.6 (A) 06/27/2024 HGBA1C 5.5 03/24/2024 - Lab Results Component Value Date MICROALBUR 0.4 08/29/2021 CREATININE 0.76 01/10/2022 -Changes: None - Diabetic eye exam: Patient already has an appointment - Diabetic foot exam: Pending - Continue lifestyle modifications - Continue current medications - Follow up: 3 months Assessment & Plan (06/27/2024 10:14 AM EST): Diabetes is: almost at goal - Lab Results Component Value Date HGBA1C 6.6 (A) 06/27/2024 HGBA1C 5.5 03/24/2024 HGBA1C 7.9 (A) 08/12/2023 - Lab Results Component Value Date MICROALBUR 0.4 08/29/2021 CREATININE 0.76 01/10/2022 -Changes: none - Diabetic eye exam:referral done - Diabetic foot exam:referral done - Continue lifestyle modifications - Continue current medications - Follow up: 3 months Assessment & Plan (03/27/2024 5:11 PM EDT): Diabetes is: controlled - Lab Results Component Value Date HGBA1C 5.5 03/24/2024 HGBA1C 7.9 (A) 08/12/2023 HGBA1C 8.4 (H) 08/06/2020 - Lab Results Component Value Date MICROALBUR 0.4 08/29/2021 CREATININE 0.76 01/10/2022 -Changes: none, continue metformin - Diabetic eye exam:pending - Diabetic foot exam:pending - Continue lifestyle modifications - Continue current medications - Follow up: 3 months Assessment & Plan (08/12/2023 4:15 PM EST): Patient has not take medication for diabetes for 2 years, A1c is 7.9 which is not ideal in , I decided to put her on Lantus at bed time start at 5 units if glucose is above 140 in the morning patient can titter up to 10 units at bed time until she is seen by [facility]BM[facility] Jerez, I did not put her on short acting insulin because patient has never had insulin before and does not know how to do sliding scales Resolved Problems Problem Noted Date Diagnosed Date Resolved Date 9 weeks gestation of 08/12/2023 11/09/2024 Assessment & Plan (08/12/2023 4:04 PM EST): Patient has her first appointment with OBGYN on 08/19/23 Patient is taking vitamins (Counseling done no smoking, no alcohol, no raw food, maintain good glycemic control) Encounters Date Type Department Care Team Description 02/13/2025 Orders Only GENERIC EXTERNAL DATA DEPARTMENT Provider, Generic External Data 11/28/2024 Telephone [facility] OPTOMETRY [address] [place] [address] Suzanna Oates, TORI 11/14/2024 Refill [facility] MEDICINE [address] [place], [place] [phone] Valentine Troncoso MD Type 2 diabetes mellitus with hyperglycemia, without long-term current use of insulin ([facility]) from Last 3 Months Immunizations Immunization Administration Dates Next Due Influenza injectable quadrivalent preservative f ree 08/06/2020 Influenza, seasonal, injectable, preservative fr ee 03/24/2024 Pneumococcal Conjugate PCV 20 06/27/2024 Tdap 12/27/2023,08/06/2020 Social History Tobacco Use Types Packs/Day Years Used Date Smoking Tobacco: Never Passive Smoke Exposure: Never Smokeless Tobacco: Never Tobacco Cessation:Counseling Given: Not Answered Alcohol Use Standard Drinks/Week Comments Never 0 [...] Access Q2 Not on file 06/27/2024 Comments No Sex and Gender Information Value Date Recorded Sex Assigned at Female 04/20/2022 10:16 AM EDT Legal Sex Female 10:16 AM EDT Gender Identity Female 04/20/2022 10:16 AM EDT Sexual Orientation Straight 04/20/2022 10 :16 AM EDT Last Filed Vital Signs Vital Sign Reading Time Taken Comments Blood Pressure 136/85 11/09/2024 3:13 PM EDT Pulse 89 11/09/2024 2:35 PM EDT Temperature 35.8 C (96.5 F) 11/09/2024 2:35 PM EDT Respiratory Rate 16 11/09/2024 2:35 PM EDT Oxygen Saturation 97% 11/09/2024 2:35 PM EDT Inhaled Oxygen Concentration - - Weight 93.7 kg (206 lb 8 oz) 11/09/2024 2:35 PM EDT Height 165.1 cm (5' 5 ) 11/09/2024 2:35 PM EDT Body Mass Index 34.36 11/09/2024 2:35 PM EDT Plan of Treatment Upcoming Encounters Date Type Department Care Team (Late st Contact Info) Description 05/09/2025 8:00 AM EST Office Visit [facility] ADULT DENTAL [address] [place] [phone] Rodo Casasaris [address] [place] [address] Health Maintenance Due Date Last Done Comments Diabetes: Foot Exam 2001 Eye Exam 2001 Family Planning (PISQ) 2006 HPV Vaccines (1 - 3-dose series) 2006 Hepatitis B Vaccines (1 of 3 - 19+ 3-dose series) 2010 COVID-19 Vaccine ( season) 2024 01/16/2022, 11/13/2020, 10/23/2020 Diabetes: Hemoglobin A1C 01/15/2025 025, 06/27/2024, 03/24/2024, Additional history exists Influenza Vaccine (#1) 2025 , 03/25/2023, 08/06/2020 Dental Oral Exam 04/27/2025 10/24/2024 Dental Prophylaxis 04/27/2025 10/24/2024 Alcohol/Substance Use Screening 06/27/2025 06/27/2024 Depression Screening 06/27/2025 06/27/2024, 06/27/19 SDOH Screening 06/27/2025 06/27/2024 Dental X-Ray: Bitewings 10/25/2025 10/24/2024 Diabetes: Urine Protein Screening 11/09/2025 11/09/2024, 08/29/2021 Disability Screening 11/09/2025 11/09/2024 Lipid Panel 11/09/2025 11/09/2024, 08/29/2021 Tobacco Screening 11/09/2025 11/09/2024 Dental X-Ray: Full Mouth 10/26/2027 10/24/2024 Cervical Cancer Screening 09/02/2028 HPV/Cotest 09/02/2028 09/03/2023 Pap Smear 09/02/2028 09/03/2023 DTaP/Tdap/Td Vaccines (3 - Td or Tdap) 12/26/2033 12/27/2023, 08/06/2020, 06/09/2018 Zoster Vaccines (1 of 2) 2041 RSV Patients and Patients Aged 60 years or older (1 - 1-dose 75+ series) 2066 HIV Screening Completed 08/06/2020 Hepatitis C Screening Completed 08/06/2020 Pneumococcal Vaccine: Pediatrics (0 to 5 Years) and At-Risk Patients (6 to 49) Years Completed 06/27/2024 HIB Vaccines Aged Out No longer eligi [...] patient's age to complete this topic Meningococcal Vaccine Aged Out No jim kenneth eligible based on patient's age to complete this topic RSV under 20 months Aged Out No longe r eligible based on patient's age to complete this topic Rotavirus Vaccines Aged Out No longer eligible based on patient's age to complete this topic Procedures Procedure Name Priority Date/Time Associated Diagnosis Comments MAGNESIUM Routine 02/13/2025 10:36 AM EDT PHOSPHATE ( PHOSPHORUS) Routine 02/13/2025 10:36 AM EDT D DIMER HIGH SENSITIVITY Routine 02/13/2025 10:36 AM EDT HCG, QL, URINE Routine 02/13/2025 10:36 AM EDT TSH Routine 02/13/2025 9:56 AM EDT T4, FREE Routine 02/13/2025 9:56 AM EDT HIGH SENSITIVITY TROPONIN I Routine 02/13/2025 9:56 AM EDT BASIC METABOLIC PANEL Routine 02/13/2025 9:56 AM EDT CBC WITH AUTO DIFFERENTIAL Routine 02/13/2025 9:56 AM EDT ALBUMIN, RANDOM URINE W/CREATININE Routine 11/09/2024 3:19 PM EDT Type 2 diabetes mellitus without complication, without long-term current use of insulin (CMS/HCC) LIPID PANEL, STANDARD Routine 11/09/2024 3:19 PM EDT Type 2 diabetes mellitus without complication, without long-term current use of insulin (CMS/HCC) PROPHYLAXIS - ADULT Routine 10/24/2024 8 :00 AM EDT Dental calculus Acute gingival inflammation Periodontal disease INTRAORAL - COMPLETE SERIES OF RADIOGRAPHIC IMAGES Routine 10/24/2024 8:00 AM EDT PERIODIC ORAL EVALUATION - ESTABLISHED PATIENT Routine 10/24/2024 8:00 AM EDT POCT GLYCATED HEMOGLOBIN, TOTAL Routine 10/16/2024 4:12 PM EDT Type 2 diabetes mellitus with hyperglycemia, without long-term current use of insulin (CMS/HCC) HM PAP/HPV Routine 09/03/2023 12:00 AM EDT ZZZ HISTORICAL HEPATITIS C AB W/REFL TO HCV RNA, QN, PCR Routine 08/06/2020 10:16 AM EST HIV 1/2 ANTIGEN/ANTIBODY, FOURTH GENERATION W/RFL Routine 08/06/2020 10:16 AM EST from Last 3 Months or Most Recently Relevant to Health Maintenance Results * D Dimer High Sensitivity (02/13/2025 10:36 AM EDT) D Dimer High Sensitivity <150 NG/ML [facility] Comment:D-DIMER HS REFERENCE RANGENote: Our assay reports D-Dimer Units (D- DU).The cut-off value for venous thromboembolic (VTE) disease is230 ng/mL. This value has a very high negative predictivevalue when the patient has a low to moderate clinicalprobability of VTE.The upper limit of normal is 243 ng/mL. 02/13/2025 10:3 6 AM EDT 02/13/2025 10:42 AM EDT us Generic External Data Provider LAB BLOOD ORDERAB LES Final Result Performing Organization Address [facility] Co de Phone Number [facility] [address] [place] [phone] * HCG, Qualitative, Urine (02/13/2025 10:36 AM EDT) Urine NEGATIVE NEGATIVE [facility] Comment:This test was develo ped to detect early . Falsenegative results may occur after the 5th - 7th week ofpregnancy when using this test method. If clinicallyindicated, consider a serum hCG. 02/13/2025 10:3 6 AM EDT 02/13/2025 10:42 AM EDT us Generic External Data Provider LAB URINE ORDERAB LES Final Result Performing Organization Address [facility] de Phone Number [facility] [address] [place] [phone] * Phosphate (As Phosphorus) (02/13/2025 10:36 AM EDT) Phosphorus 3.2 2.7 - 4.5 mg/dL [facility] 02/13/2025 10:3 6 AM EDT 02/13/2025 10:42 AM EDT us Generic External Data Provider LAB BLOOD ORDERAB LES Final Result Performing Organization Address [facility] Co de Phone Number [facility] [address] [place] [phone] * Magnesium (02/13/2025 10:36 AM EDT) Magnesium 2.0 1.6 - 2.6 mg/dL [facility] 02/13/2025 10:3 6 AM EDT 02/13/2025 10:42 AM EDT Generic External Data Provider LAB BLOOD ORDERAB LES Final Result Performing Organization Address [facility] Co de Phone Number [facility] [address] [place] [phone] * High Sensitivity Troponin I (02/13/2025 9:56 AM EDT) [facility] TROPONIN I HIGH SENSITIVITY <2.7 <3.5 - 17.0 ng/L [facility] Comment:The [employer] high sens itivity Troponin-I results should beused in conjunction with other diagnostic information suchas ECG, clinical observations and information, and patientsymptoms to aid in the diagnosis of SD. 02/13/2025 9:56 AM EDT 02/13/2025 10:00 AM EDT us Generic External Data Provider LAB BLOOD ORDERAB LES Final Result Performing Organization Address [facility] de Phone Number [facility] [address] [place] [phone] * CBC auto differential (02/13/2025 9:56 AM EDT) [facility] White Blood Count 7.8 4.8 - 10.8 X10*3/uL [facility] Red Blood Count 4.74 4.20 - 5.50 X10*6/uL [facility] Hemoglobin 13.9 12.0 - 16.0 g/dl [facility] Hematocrit 41.0 37.0 - 47.0 % [facility] Mean Corpuscular Volume 86.5 80.0 - 98.0 fL [facility] Mean Corpuscular Hemoglobin 29.3 27.0 - 33.0 pg [facility] Mean Corpuscular HGB Conc 33.9 31.0 - 35.0 g/dl [facility] Red Cell Distribution Width 12.8 11.0 - 16.0 % [facility] Platelet Count 231 160 - 400 X10*3/uL [facility] Mean Platelet Volume 11.5 9.4 - 12.3 fL [facility] Neutrophils Percent Auto 70.6 45 - 73 % [facility] Imm Gran Pct Auto 0.4 0.0 - 0.4 % [facility] Lymphocytes Percent Auto 22.7 20 - 40 % [facility] Monocytes Percent Auto 4.8 2 - 11 % [facility] Eosinophils Percent Auto 1.0 0 - 4 % [facility] Basophils Percent Auto 0.5 0 - 2 % [facility] NRBC Pct Auto 0.0 0.0 - 0.2 /100WBC [facility] Neutrophils Absolute Auto 5.5 2.0 - 8.3 x10*3/uL [facility] Imm Gran Abs Auto 0.03 0.00 - 0.03 X10*3/uL [facility] Lymphocytes Absolute Auto 1.8 1.2 - 4.9 X10*3/uL [facility] Monocytes Absolute Auto 0.4 0.1 - 1.2 X10*3/uL [facility] Eosinophils Absolute Auto 0.1 0.0 - 0.4 X10*3/uL [facility] Basophils Absolute Auto 0.0 0.0 - 0.2 X10*3/uL [facility] NRBC Abs Auto 0.000 0.0 - 0.012 X10*3/uL [facility] 02/13/2025 9:56 AM EDT 02/13/2025 10:00 AM EDT us Generic External Data Provider LAB BLOOD ORDERAB LES Final Result [facility] [address] [place] [phone] * TSH (02/13/2025 9:56 AM EDT) Thyroid Stimulating Hormone 2.43 0.32 - 4.0 uIU/mL [facility] Comment:TSH 3rd Generation ( [employer]) 02/13/2025 9:56 AM EDT 02/13/2025 10:00 AM EDT us Generic External Data Provider LAB BLOOD ORDERAB LES Final Result Performing Organization Address City/[facility]/ZIP Co de Phone Number [facility] [address] [place] [phone] * T4, Free (02/13/2025 9:56 AM EDT) Free T4 (Free Thyroxine) 0.85 0.71 - 1.85 ng/dL [facility] 02/13/2025 9:56 AM EDT 02/13/2025 10:00 AM EDT us Generic External Data Provider LAB BLOOD ORDERAB LES Final Result Performing Organization Address [facility] de Phone Number [facility] [address] [place] [phone] * (ABNORMAL) Basic Metabolic Panel (02/13/2025 9:56 AM EDT) [facility] Sodium 139 135 - 145 mmol/L [facility] Potassium 4.0 3.3 - 5.1 mmol/L [facility] Chloride 105 96 - 108 mmol/L [facility] Carbon Dioxide 23 22 - 29 mmol/L [facility] Anion Gap 15 12 - 20 [facility] Urea Nitrogen (BUN) 16 9 - 16 mg/dL [facility] Creatinine, Serum 0.86 0.5 - 1.4 mg/dL [facility] Creatinine Clr Calc Pharmacy 106.0 [facility] Comment:Provided height and weight: 167.64 cm,91.5 kg.eGFR (calculated from the MDRD study equation) and eCrCl(calculated from the Cockcroft-Gault equation) are based ondifferent parameters and may not yield comparable results.If eCrCl result is absurd, please check patient'sheight/weight. Estimated Glomerular Filt Rate >60 [facility] Comment:Chronic Kidney Disea se: Estimated GFR < 60 mL/min/[id number] Kidney Disease: Estimated GFR < 15 mL/min/1.73m2 Glucose 218(H) 60 - 115 mg/dL [facility] Calcium 9.2 8.4 - 10.2 mg/dL [facility] 02/13/2025 9:56 AM EDT 02/13/2025 10:00 AM EDT us Generic External Data Provider LAB BLOOD ORDERAB LES Final Result Performing Organization Address [facility] de Phone Number [facility] [address] [place] [phone] * Albumin, Random Urine W/Creatinine (11/09/2024 3:19 PM EDT) Creatinine, Urine 131.10 mg/dL [facility] Microalbumin Urine 7.0 mg/L [facility] Microalbum Creatinine Ratio Ur 5.3 <30 ug/mg cr [facility] Comment:Albumin/Creatinine R atio Reference Ranges: Normal: < 30 ug/mg creatinine Microalbuminuria: 30 - 300 ug/mg creatinineClinical Albuminuria: > 300 ug/mg creatinine Urine (Urine, Random) 11/09/2024 3:19 PM EDT 11/09/2024 3:59 PM EDT us Valentine Lazcano MD LAB URINE ORDERABLES Final Result Performing Organization Address [facility] Co de Phone Number [facility] [address] [place] [phone] * (ABNORMAL) Lipid Panel, Standard (11/09/2024 3:19 PM EDT) Triglycerides 264(H) <150 mg/dL [facility] Comment:Slight Lipemia.Daron able Triglyceride: less than 150 mg/dLBorderline High Triglyceride 150-199 mg/dLHigh Triglyceride: 200-499 mg/dLVery High Triglyceride: greater than or equal to 5OO mg/dL Cholesterol 242(H) <200 mg/dL [facility] Comment:Desirable Cholestero l: less than 200 mg/dLBorderline High Cholesterol: 200-239 mg/dLHigh Cholesterol: greater than 239 mg/dL LDL Cholesterol Calculated 142(H) <100 mg/dL [facility] Comment:Desirable LDL: less than 100 mg/dLNear Optimal/Above Optimal LDL: 110- 129 mg/dLBorderline High LDL: 130-159 mg/dLHigh LDL: 160-189 mg/dLVery High LDL: greater than or equal to 190 mg/dL HDL Cholesterol 48 >40 mg/dL [facility] Comment:Desirable HDL: great er than 40 mg/dL Note: This HDL assay may give artificially low results in patients with liver disease. Blood Venous blood specimen / Unknown 11/09/2024 3:19 PM EDT 11/09/2024 3:59 PM EDT Valentine Lazcano MD LAB BLOOD ORDERABLES Final Result Performing Organization Address City/[facility]/ZIP Co de Phone Number [facility] [address] [place] [phone] * (ABNORMAL) POCT HGB A1C (10/16/2024 4:12 PM EDT) Hemoglobin A1C 7.2(A) 4.0 - 6.0 % QC Media Lot # [id number] Lot# Expiration Date 678 Blood 10/16/2024 4:12 PM EDT Valentine Lazcano MD POINT OF CARE TEST EN TER/EDIT ORDERABLES Final Result * HM PAP/HPV (09/03/2023 12:00 AM EDT) Pap Smear 1. NILM 1. NILM [facility] HPV Not Detected Undetected, Indeterminat e, Quantitative , Not Detected [facility] Narcisa Provider HEALTH MAINTENANCE Edited Result - Final Performing Organization Address City/[facility]/ZIP Co de Phone Number [facility] [address] [place] [phone] * HEPATITIS C AB W/REFL TO HCV RNA, QN, PCR (08/06/2020 10:16 AM EST) HEPATITIS C ANTIBODY NON-REACT SUMMER NON-REACT SUMMER [facility] INDEX 0.03 <1.00 [facility] Comment: HCV antibody was non-reactive. There is no laboratory evidence of HCV infection. In most cases, no further action is required. However, if recent HCV exposure is suspected, a test for HCV RNA (test code 07913) is suggested. For additional information please refer to [email or web address] (This link is being provided for informational/ educational purposes only.) 08/06/2020 10:1 6 AM EST us Desiree Vazquez MD HISTORICAL/NON ORDERABLE LAB S Final Result [facility] [address] [place] [address], * HIV 1/2 ANTIGEN/ANTIBODY,FOURTH GENERATION W/RFL (08/06/2020 10:16 AM EST) HIV-1/2 ANTIGEN AND ANTIBODIES, 4TH GENERATION W/ REFLEX NON-REACT SUMMER NON-REACT SUMMER [facility] Comment: HIV-1 antigen and HIV-1/HIV-2 antibodies were not detected. There is no laboratory evidence of HIV infection. PLEASE NOTE: This information has been disclosed to you from records whose confidentiality may be protected by state law. If your state requires such protection, then the state law prohibits you from making any further disclosure of the information without the specific written consent of the person to whom it pertains, or as otherwise permitted by law. A general authorization for the release of medical or other information is NOT sufficient for this purpose. For additional information please refer to [email or web address] (This link is being provided for informational/ educational purposes only.) The performance of this assay has not been clinically validated in patients less than 2 years old. 08/06/2020 10:1 6 AM EST us Desiree Vazquez MD LAB BLOOD ORDERABLES Final R esult [facility] [address] from Last 3 Months or Most Recently Relevant to Health Maintenance Insurance [facility] C3 Care Teams Binder [employer] Wrapper Packer Relationship Specialty Start Date End Date Valentine Troncoso MD [address] [place] [phone] PCP - General Internal Medicine 03/02/23
--- OUTSIDE RECORDS SUMMARY | 2025-02-13 11:12 | XMS_ITS | Encounter Summary ---
Author Organization [employer] Address [address] [place] [address] Care Team Providers Care Orthopaedic Surgeon Name Role Phone Valentine Troncoso MD Primary Care Provide r Encounter Details Date Type Department Care Team ([facility] st Contact Info) Description 07/04/2024 Telephone [facility] [address] [place] [address] Rodo Casasaris [address] [place] [address] Social History Tobacco Use Types Packs/Day Years [...] encounter Miscellaneous Notes * Telephone Encounter - Mary Roman - 07/04/2024 8:58 AM EST PT would like to be added to cancellation list documented in this encounter Plan of Treatment Upcoming Encounters Date Type Department Care Team (Late st Contact Info) Description 05/09/2025 8:00 AM EST Office Visit [facility] [address] [place] [address] Augusto, Nora [address] [place] [address] documented as of this encounter Visit Diagnoses Not on filedocumented in this encounter Additional Health Concerns Assessment Noted Time PHQ-9 Depression Total Score: 0 06/27/19 25 9:15 AM EST documented as of this encounter Care Teams Orthopaedic Surgeon Relationship Specialty Start Date End Date Valentine Troncoso MD [address] [place] [address] PCP - General Internal Medicine 03/02/23 documented as of this encounter
--- OUTSIDE RECORDS SUMMARY | 2025-02-13 11:12 | XMS_ITS | Encounter Summary ---
Author Organization [employer] Address [address] [facility] [address] [place] [address] Care Team Providers Care Rn Nursery Name Role Phone Valentine Troncoso MD Primary Care Provide r Encounter Details Date Type Department Care Team ([facility] Contact Info) Description 02/13/2025 Orders Only GENERIC EXTERNAL DATA DEPARTMENT Provider, Generic External Data Social History Tobacco Use Types Packs/Day Years [...] Description 05/09/2025 8:00 AM EST Office Visit [facility] [address] [place], [place] [phone] Augusto, Nora [address] [place], [place] [phone] documented as of this encounter Procedures Procedure Name Priority Date/Time Associated Diagnosis Comments D DIMER HIGH SENSITIVITY Routine 02/13/2025 10:36 AM EDT HCG, QL, URINE Routine 02/13/2025 10:36 AM EDT PHOSPHATE ( PHOSPHORUS) Routine 02/13/2025 10:36 AM EDT MAGNESIUM Routine 02/13/2025 10:36 AM EDT HIGH SENSITIVITY TROPONIN I Routine 02/13/2025 9:56 AM EDT CBC WITH AUTO DIFFERENTIAL Routine 02/13/2025 9:56 AM EDT TSH Routine 02/13/2025 9:56 AM EDT T4, FREE Routine 02/13/2025 9:56 AM EDT BASIC METABOLIC PANEL Routine 02/13/2025 9:56 AM EDT documented in this encounter Results * Magnesium (02/13/2025 10:36 AM EDT) Magnesium 2.0 1.6 - 2.6 mg/dL [facility] 02/13/2025 10:3 6 AM EDT 02/13/2025 10:42 AM EDT Generic External Data Provider LAB BLOOD ORDERAB LES Final Result Performing Organization Address [facility] de Phone Number [facility] [address] [place] [phone] * Phosphate (As Phosphorus) (02/13/2025 10:36 AM EDT) Pathologist [facility] Phosphorus 3.2 2.7 - 4.5 mg/dL [facility] 02/13/2025 10:3 6 AM EDT 02/13/2025 10:42 AM EDT Generic External Data Provider LAB BLOOD ORDERAB LES Final Result Performing Organization Address [facility] [address] [place] [phone] * D Dimer High Sensitivity (02/13/2025 10:36 AM EDT) Pathologist [facility] D Dimer High Sensitivity <150 NG/ML [facility] Comment:D-DIMER HS REFERENCE RANGENote: Our [...] ORDERAB LES Final Result Performing Organization Address [facility] Phone Number [facility] [address] [place] [phone] * HCG, Qualitative, Urine (02/13/2025 10:36 AM EDT) Urine NEGATIVE NEGATIVE [facility] Comment:This test was develo ped to detect early . Falsenegative results may occur after the 5th - 7th week ofpregnancy when using this test method. If clinicallyindicated, consider a serum hCG. 02/13/2025 10:3 6 AM EDT 02/13/2025 10:42 AM EDT us Generic External Data Provider LAB URINE ORDERAB LES Final Result Performing Organization Address [facility] Co de Phone Number [facility] [address] [place] [phone] * TSH (02/13/2025 9:56 AM EDT) Thyroid Stimulating Hormone 2.43 0.32 - 4.0 uIU/mL [facility] Comment:TSH 3rd Generation ( [facility]) 02/13/2025 9:56 AM EDT 02/13/2025 10:00 AM EDT us Generic External Data Provider LAB BLOOD ORDERAB LES Final Result Performing Organization Address [facility] Co de Phone Number [facility] [address] [place] [phone] * T4, Free (02/13/2025 9:56 AM EDT) Free T4 (Free Thyroxine) 0.85 0.71 - 1.85 ng/dL [facility] 02/13/2025 9:56 AM EDT 02/13/2025 10:00 AM EDT us Generic External Data Provider LAB BLOOD ORDERAB LES Final Result Performing Organization Address [facility] Co de Phone Number [facility] [address] [place] [phone] * High Sensitivity Troponin I (02/13/2025 9:56 AM EDT) Pathologist [facility] TROPONIN I HIGH SENSITIVITY <2.7 <3.5 - 17.0 ng/L [facility] Comment:The [employer] high sens itivity Troponin-I results should beused in conjunction with other diagnostic information suchas ECG, clinical observations and information, and patientsymptoms to aid in the diagnosis of [place]. 02/13/2025 9:56 AM EDT 02/13/2025 10:00 AM EDT us Generic External Data Provider LAB BLOOD ORDERAB LES Final Result [facility] [address] [place] [phone] * (ABNORMAL) Basic Metabolic Panel (02/13/2025 9:56 AM EDT) Pathologist [facility] Sodium 139 135 - 145 mmol/L [facility] Potassium 4.0 3.3 - 5.1 mmol/L [facility] Chloride 105 96 - 108 mmol/L [facility] Carbon Dioxide 23 22 - 29 mmol/L [facility] Anion Gap 15 12 - 20 [facility] Urea Nitrogen (BUN) 16 9 - 16 mg/dL [facility] Creatinine, Serum 0.86 0.5 - 1.4 mg/dL [facility] Creatinine Clr Calc Pharmacy 106.0 [facility] Comment:Provided height and weight: 167.64 cm,91.5 kg.eGFR (calculated from the MDRD study equation) and eCrCl(calculated from the Cockcroft-Gault equation) are based ondifferent parameters and may not yield comparable results.If eCrCl result is absurd, please check patient'sheight/weight. Estimated Glomerular Filt Rate >60 [facility] Comment:Chronic Kidney Disea se: Estimated GFR < 60 mL/min/1.45l2Tbgamd Kidney Disease: Estimated GFR < 15 mL/min/1.73m2 Glucose 218(H) 60 - 115 mg/dL [facility] Calcium 9.2 8.4 - 10.2 mg/dL [facility] 02/13/2025 9:56 AM EDT 02/13/2025 10:00 AM EDT us Generic External Data Provider LAB BLOOD ORDERAB LES Final Result [facility] [address] [place] [phone] * CBC auto differential (02/13/2025 9:56 AM EDT) White Blood Count 7.8 4.8 - 10.8 X10*3/uL [facility] Red Blood Count 4.74 4.20 - 5.50 X10*6/uL [facility] Hemoglobin 13.9 12.0 - 16.0 g/dl [facility] Hematocrit 41.0 37.0 - 47.0 % [facility] Mean Corpuscular Volume 86.5 80.0 - 98.0 fL [facility] Mean Corpuscular Hemoglobin 29.3 27.0 - 33.0 pg [facility] Mean Corpuscular HGB Conc 33.9 31.0 - 35.0 g/dl [facility] Red Cell Distribution Width 12.8 11.0 - 16.0 % [facility] Platelet Count 231 160 - 400 X10*3/uL [facility] Mean Platelet Volume 11.5 9.4 - 12.3 fL [facility] Neutrophils Percent Auto 70.6 45 - 73 % [facility] Imm Gran Pct Auto 0.4 0.0 - 0.4 % [facility] Lymphocytes Percent Auto 22.7 20 - 40 % [facility] Monocytes Percent Auto 4.8 2 - 11 % [facility] Eosinophils Percent Auto 1.0 0 - 4 % [facility] Basophils Percent Auto 0.5 0 - 2 % [facility] NRBC Pct Auto 0.0 0.0 - 0.2 /100WBC [facility] Neutrophils Absolute Auto 5.5 2.0 - 8.3 x10*3/uL [facility] Imm Gran Abs Auto 0.03 0.00 - 0.03 X10*3/uL [facility] Lymphocytes Absolute Auto 1.8 1.2 - 4.9 X10*3/uL [facility] Monocytes Absolute Auto 0.4 0.1 - 1.2 X10*3/uL [facility] Eosinophils Absolute Auto 0.1 0.0 - 0.4 X10*3/uL [facility] Basophils Absolute Auto 0.0 0.0 - 0.2 X10*3/uL [facility] NRBC Abs Auto 0.000 0.0 - 0.012 X10*3/uL [facility] 02/13/2025 9:56 AM EDT 02/13/2025 10:00 AM EDT us Generic External Data Provider LAB BLOOD ORDERAB LES Final Result [facility] [address] [place] [phone] documented in this encounter Visit Diagnoses Not on filedocumented in this encounter Additional Health Concerns Assessment Noted Time PHQ-9 Depression Total Score: 0 06/27/19 25 9:15 AM EST documented as of this encounter Care Teams Rn Nursery Relationship Specialty Start Date End Date Valentine Troncoso MD [address] [place] [address] PCP - General Internal Medicine 03/02/23 documented as of this encounter
[2025-02-13 12:36] VITALS: BP 108/55; PULSE 78; RESP 14; O2SAT 99
[2025-02-13 13:18] LABS: Troponin-I High Sensitivity < 2.7 ng/L (<3.5-17.0)
[2025-02-13 14:31] VITALS: BP 108/55; PULSE 78; RESP 14; TEMP 37.1; O2SAT 99
== END 2025-02-13 14:36 | disposition home or self-care (01) ==
PROVIDERS: Emergency Provider Emergency Medicine; PCP Internal Medicine
DX: R07.89 Other chest pain (principal); R06.02 Shortness of breath; R42 Dizziness and giddiness; R00.2 Palpitations; F43.89 Other reactions to severe stress
CPT/HCPCS: 36415; 71045; 80048; 81025; 83735; 84100; 84439; 84443; 84484; 85025; 85379; 93005; 99283; 99285

== ENCOUNTER → 2025-02-13 09:32 | Outpatient (BNV) | payer MEDICAID, SELFPAY | PROVIDERS: Emergency Provider Emergency Medicine; PCP Internal Medicine; Visit Provider Internal Medicine | DX: R94.31 Abnormal electrocardiogram [ECG] [EKG] (principal); R07.9 Chest pain, unspecified | CPT/HCPCS: 93010 ==

== ENCOUNTER → 2025-02-13 13:02 | Outpatient (BNV) | payer MEDICAID, SELFPAY | PROVIDERS: Emergency Provider Emergency Medicine; PCP Internal Medicine; Visit Provider Radiology Diagnostic Radiology | DX: R07.9 Chest pain, unspecified (principal) | CPT/HCPCS: 71045 ==